=== PATIENT | female | born 1950 | race Caucasian/White ===

== ENCOUNTER 2018-03-02 14:45 | Observation (INO) | payer MEDICARE ==
--- OUTSIDE RECORDS SUMMARY | 2018-03-02 14:59 | XMS REPORT ---
:1950 [facility] [address] [place] [address] [address] [place] [address] Care Team Providers Name Role Phone LIONEL LOPEZ Unavailable Unavailable DAGOBERTO MILLER Unavailable Unavailable JUDAH SOFIA Unavailable Unavailable Problems This patient has no known problems. Allergies, Adverse Reactions, Alerts This patient has no known allergies or adverse reactions. Medications This patient has no known medications. Results Test Description Test Time Test Comments Text Results Atomic Results Result Comments BLOOD CULTURE 2016-11-25 14:37:00 Test Item Value Reference Range Comments CULTURE (BEAKER) (test ojfp=8659) No growth in 5 days BLOOD [id number] 13:58:00 Test Item Value Reference Range Comments CULTURE (BEAKER) (test ceyp=3990) No growth in 5 days POCT-GLUCOSE [id number] 08:47:00 Test Item Value Reference Range Comments POC-GLUCOSE METER (BEAKER) 112 mg/dL 70-110 TESTED AT [facility] [address] [facility] (test qyto=4236) [facility] [address] [id number] 05:04:00 Test Item Value Reference Range Comments CREATININE (BEAKER) (test 0.72 mg/dL 0.57-1.25 uxuz=749) EGFR (BEAKER) (test 81 mL/min/1.73 sq m ESTIMATED GFR IS NOT hjmi=0771) ACCURATE CREATININE CLEARANCE IN PREDICTING GLOMERULAR FILTRATION RATE. ESTIMATED GFR IS NOT APPLICABLE FOR DIALYSIS PATIENTS. SPUTUM CULTURE + GRAM [id number] 04:13:00 Test Item Value Reference Range Comments CULTURE (BEAKER) (test 3+ Normal respiratory kirstie udcj=0207) present GRAM STAIN RESULT (BEAKER) 2+ WBCs (test gmyh=0215) GRAM STAIN RESULT (BEAKER) 10-15 epithelial cells (test yitn=15238) GRAM STAIN RESULT (BEAKER) 1+ gram positive rods (test thti=83249) GRAM STAIN RESULT (BEAKER) 3+ gram positive cocci in pairs (test qcbl=793058) GRAM STAIN RESULT (BEAKER) <1+ gram positive cocci in (test lpum=616880) clusters POCT-GLUCOSE [id number] 21:46:00 Test Item Value Reference Range Comments POC-GLUCOSE METER (BEAKER) 137 mg/dL 70-110 TESTED AT [address] (test yxqg=1227) [place] [address] POCT-GLUCOSE [id number] 18:03:00 Test Item Value Reference Range Comments POC-GLUCOSE METER (BEAKER) 95 mg/dL 70-110 TESTED AT [address] (test zeco=5852) [place] [address] POCT-GLUCOSE [id number] 12:59:00 Test Item Value Reference Range Comments POC-GLUCOSE METER (BEAKER) 110 mg/dL 70-110 TESTED AT [address] (test ysif=4317) [place] [id number] POCT-GLUCOSE [id number] 08:29:00 Test Item Value Reference Range Comments POC-GLUCOSE METER (BEAKER) 90 mg/dL 70-110 TESTED AT [address] (test ijlm=7032) [place] [address] VANCOMYCIN LEVEL, [id number] 23:29:00 Test Item Value Reference Range Comments VANCOMYCIN TROUGH (BEAKER) (test xddf=511) 20.0 ug/mL 10.0-20.0 Draw trough level prior to dose administration.POCT-GLUCOSE [id number] 21: 05:00 Test Item Value Reference Range Comments POC-GLUCOSE METER (BEAKER) 92 mg/dL 70-110 TESTED AT [address] (test exvs=3495) [place] [id number] POCT-GLUCOSE [id number] 17:04:00 Test Item Value Reference Range Comments POC-GLUCOSE METER (BEAKER) 121 mg/dL 70-110 TESTED AT [address] (test tgft=3232) [place] [id number] POCT-GLUCOSE [id number] 12:25:00 Test Item Value Reference Range Comments POC-GLUCOSE METER (BEAKER) 94 mg/dL 70-110 TESTED AT [address] (test giry=9795) [facility] [address] POCT-GLUCOSE [id number] 08:47:00 Test Item Value Reference Range Comments POC-GLUCOSE METER (BEAKER) 98 mg/dL 70-110 TESTED AT [address] (test fblw=9103) [facility] [address] POCT-GLUCOSE [id number] 22:35:00 Test Item Value Reference Range Comments POC-GLUCOSE METER (BEAKER) 124 mg/dL 70-110 TESTED AT [address] (test jzbd=9084) [facility] [address] POCT-GLUCOSE [id number] 17:08:00 Test Item Value Reference Range Comments POC-GLUCOSE METER (BEAKER) 256 mg/dL 70-110 TESTED AT [address] (test rokf=2290) [facility] [address] POCT-GLUCOSE [id number] 12:45:00 Test Item Value Reference Range Comments POC-GLUCOSE METER (BEAKER) 112 mg/dL 70-110 TESTED AT [address] (test irsw=5088) [facility] [address] POCT-GLUCOSE [id number] 07:37:00 Test Item Value Reference Range Comments POC-GLUCOSE METER (BEAKER) 105 mg/dL 70-110 TESTED AT [address] (test hlpb=6947) [facility] [address] CBC W/PLT COUNT & AUTO [id number] 05:55:00 Test Item Value Reference Range Comments WHITE BLOOD CELL COUNT (BEAKER) (test mtbr=303) 5.5 K/ L 4.0-10.0 RED BLOOD CELL COUNT (BEAKER) (test hmjh=532) 4.11 M/ L 4.00-5.00 HEMOGLOBIN (BEAKER) (test rstc=657) 12.6 GM/DL 12.0-15.0 HEMATOCRIT (BEAKER) (test zdyr=370) 38.0 % 36.0-45.0 MEAN CORPUSCULAR VOLUME (BEAKER) (test rzlw=824) 92.3 fL 82.0-99.0 MEAN CORPUSCULAR HEMOGLOBIN (BEAKER) (test 30.6 pg 27.0-33.0 obvb=393) MEAN CORPUSCULAR HEMOGLOBIN CONC (BEAKER) (test 33.1 GM/DL 32.0-36.0 eczj=776) RED CELL DISTRIBUTION WIDTH (BEAKER) (test 13.5 % 10.3-14.2 oakl=914) PLATELET COUNT (BEAKER) (test dilw=451) 190 K/CU MM 150-430 MEAN PLATELET VOLUME (BEAKER) (test kkzh=916) 6.9 fL 6.5-10.5 NUCLEATED RED BLOOD CELLS (BEAKER) (test 0 /100 WBC 0-0 wwpn=767) NEUTROPHILS RELATIVE PERCENT (BEAKER) (test 48 % fjnf=596) LYMPHOCYTES RELATIVE PERCENT (BEAKER) (test 40 % wawq=831) MONOCYTES RELATIVE PERCENT (BEAKER) (test 6 % zgmi=439) EOSINOPHILS RELATIVE PERCENT (BEAKER) (test 6 % hxtf=829) BASOPHILS RELATIVE PERCENT (BEAKER) (test 1 % mybi=975) NEUTROPHILS ABSOLUTE COUNT (BEAKER) (test 2.62 K/ L 1.80-8.00 aakx=002) LYMPHOCYTES ABSOLUTE COUNT (BEAKER) (test 2.18 K/ L 1.48-4.50 urfm=700) MONOCYTES ABSOLUTE COUNT (BEAKER) (test 0.33 K/ L 0.00-1.30 xfxx=713) EOSINOPHILS ABSOLUTE COUNT (BEAKER) (test 0.31 K/ L 0.00-0.50 zuto=880) BASOPHILS ABSOLUTE COUNT (BEAKER) (test 0.03 K/ L 0.00-0.20 nsrm=109) [facility] [id number] 05:31:00 Test Item Value Reference Range Comments SODIUM (BEAKER) (test 140 meq/L 136-145 xrtr=016) POTASSIUM (BEAKER) (test 3.8 meq/L 3.5-5.1 geck=206) CHLORIDE (BEAKER) (test 102 meq/L 98-107 forq=258) CO2 (BEAKER) (test 28 meq/L 22-29 tsoe=488) BLOOD UREA NITROGEN 9 mg/dL 7-21 (BEAKER) (test lbjy=463) CREATININE (BEAKER) (test 0.75 mg/dL 0.57-1.25 tvza=217) GLUCOSE RANDOM (BEAKER) 102 mg/dL 70-105 (test tybm=580) CALCIUM (BEAKER) (test 9.0 mg/dL 8.4-10.2 sazs=627) EGFR (BEAKER) (test 77 mL/min/1.73 sq m ESTIMATED GFR IS NOT rxkm=7373) ACCURATE CREATININE CLEARANCE IN PREDICTING GLOMERULAR FILTRATION RATE. ESTIMATED GFR IS NOT APPLICABLE FOR DIALYSIS PATIENTS. POCT-GLUCOSE [id number] 21:44:00 Test Item Value Reference Range Comments POC-GLUCOSE METER (BEAKER) 112 mg/dL 70-110 TESTED AT [address] (test ygju=8595) [place] [address] POCT-GLUCOSE [id number] 18:23:00 Test Item Value Reference Range Comments POC-GLUCOSE METER (BEAKER) 105 mg/dL 70-110 TESTED AT [address] (test ajli=4652) [place] [address] POCT-GLUCOSE [id number] 11:59:00 Test Item Value Reference Range Comments POC-GLUCOSE METER (BEAKER) 102 mg/dL 70-110 TESTED AT [address] (test asho=9177) [place] [id number] POCT-GLUCOSE [id number] 07:55:00 Test Item Value Reference Range Comments POC-GLUCOSE METER (BEAKER) 90 mg/dL 70-110 TESTED AT [address] (test oxcv=5039) [place] [id number] POCT-GLUCOSE [id number] 21:28:00 Test Item Value Reference Range Comments POC-GLUCOSE METER (BEAKER) 170 mg/dL 70-110 TESTED AT [address] (test nxhw=6848) [place] [address] POCT-GLUCOSE [id number] 16:06:00 Test Item Value Reference Range Comments POC-GLUCOSE METER (BEAKER) 91 mg/dL 70-110 TESTED AT [address] (test mjtv=8178) [place] [address] POCT-GLUCOSE [id number] 09:09:00 Test Item Value Reference Range Comments POC-GLUCOSE METER (BEAKER) 151 mg/dL 70-110 TESTED AT [address] (test mvxr=0479) [place] [id number] CBC W/PLT COUNT & AUTO [id number] 06:15:00 Test Item Value Reference Range Comments WHITE BLOOD CELL COUNT (BEAKER) (test jsaz=144) 6.0 K/ L 4.0-10.0 RED BLOOD CELL COUNT (BEAKER) (test bkou=773) 3.82 M/ L 4.00-5.00 HEMOGLOBIN (BEAKER) (test vuco=766) 11.6 GM/DL 12.0-15.0 HEMATOCRIT (BEAKER) (test vpln=889) 35.3 % 36.0-45.0 MEAN CORPUSCULAR VOLUME (BEAKER) (test cttf=364) 92.5 fL 82.0-99.0 MEAN CORPUSCULAR HEMOGLOBIN (BEAKER) (test 30.5 pg 27.0-33.0 bqpc=398) MEAN CORPUSCULAR HEMOGLOBIN CONC (BEAKER) (test 33.0 GM/DL 32.0-36.0 mpmi=015) RED CELL DISTRIBUTION WIDTH (BEAKER) (test 13.5 % 10.3-14.2 zlqk=092) PLATELET COUNT (BEAKER) (test srgw=206) 149 K/CU MM 150-430 MEAN PLATELET VOLUME (BEAKER) (test dmxp=996) 6.8 fL 6.5-10.5 NUCLEATED RED BLOOD CELLS (BEAKER) (test 0 /100 WBC 0-0 nrcw=588) NEUTROPHILS RELATIVE PERCENT (BEAKER) (test 51 % odlv=938) LYMPHOCYTES RELATIVE PERCENT (BEAKER) (test 39 % ixvg=850) MONOCYTES RELATIVE PERCENT (BEAKER) (test 5 % nbip=415) EOSINOPHILS RELATIVE PERCENT (BEAKER) (test 5 % unbq=270) BASOPHILS RELATIVE PERCENT (BEAKER) (test 1 % fels=326) NEUTROPHILS ABSOLUTE COUNT (BEAKER) (test 3.04 K/ L 1.80-8.00 dlnr=462) LYMPHOCYTES ABSOLUTE COUNT (BEAKER) (test 2.31 K/ L 1.48-4.50 jcza=048) MONOCYTES ABSOLUTE COUNT (BEAKER) (test 0.33 K/ L 0.00-1.30 uata=391) EOSINOPHILS ABSOLUTE COUNT (BEAKER) (test 0.29 K/ L 0.00-0.50 rsoa=218) BASOPHILS ABSOLUTE COUNT (BEAKER) (test 0.04 K/ L 0.00-0.20 exvy=678) 0.00BASI METABOLIC [id number] 06:14:00 Test Item Value Reference Range Comments SODIUM (BEAKER) (test 141 meq/L 136-145 chfl=465) POTASSIUM (BEAKER) (test 3.8 meq/L 3.5-5.1 bqff=903) CHLORIDE (BEAKER) (test 105 meq/L 98-107 xmll=586) CO2 (BEAKER) (test 27 meq/L 22-29 ikol=674) BLOOD UREA NITROGEN 13 mg/dL 7-21 (BEAKER) (test olhh=231) CREATININE (BEAKER) (test 0.69 mg/dL 0.57-1.25 edri=966) GLUCOSE RANDOM (BEAKER) 109 mg/dL 70-105 (test mevv=362) CALCIUM (BEAKER) (test 8.6 mg/dL 8.4-10.2 rfyn=579) EGFR (BEAKER) (test 85 mL/min/1.73 sq m ESTIMATED GFR IS NOT hqmg=1844) ACCURATE CREATININE CLEARANCE IN PREDICTING GLOMERULAR FILTRATION RATE. ESTIMATED GFR IS NOT APPLICABLE FOR DIALYSIS PATIENTS. POCT-GLUCOSE [id number] 21:21:00 Test Item Value Reference Range Comments POC-GLUCOSE METER (BEAKER) 120 mg/dL 70-110 TESTED AT [facility] [address] [facility] (test zvqe=5786) [facility] [address] CBC W/PLT COUNT & AUTO [id number] 08:26:00 Test Item Value Reference Range Comments WHITE BLOOD CELL COUNT (BEAKER) (test ldzr=673) 7.3 K/ L 4.0-10.0 RED BLOOD CELL COUNT (BEAKER) (test arct=910) 4.08 M/ L 4.00-5.00 HEMOGLOBIN (BEAKER) (test wmql=826) 13.1 GM/DL 12.0-15.0 HEMATOCRIT (BEAKER) (test daya=592) 37.5 % 36.0-45.0 MEAN CORPUSCULAR VOLUME (BEAKER) (test puxk=884) 91.8 fL 82.0-99.0 MEAN CORPUSCULAR HEMOGLOBIN (BEAKER) (test 32.0 pg 27.0-33.0 kcgh=308) MEAN CORPUSCULAR HEMOGLOBIN CONC (BEAKER) (test 34.9 GM/DL 32.0-36.0 fthy=434) RED CELL DISTRIBUTION WIDTH (BEAKER) (test 13.5 % 10.3-14.2 wheu=054) PLATELET COUNT (BEAKER) (test lhvs=372) 168 K/CU MM 150-430 MEAN PLATELET VOLUME (BEAKER) (test lwgx=031) 7.0 fL 6.5-10.5 NUCLEATED RED BLOOD CELLS (BEAKER) (test 0 /100 WBC 0-0 lfir=279) NEUTROPHILS RELATIVE PERCENT (BEAKER) (test 91 % ctyb=310) LYMPHOCYTES RELATIVE PERCENT (BEAKER) (test 7 % daxc=696) MONOCYTES RELATIVE PERCENT (BEAKER) (test 2 % gzar=058) EOSINOPHILS RELATIVE PERCENT (BEAKER) (test 0 % htsv=832) BASOPHILS RELATIVE PERCENT (BEAKER) (test 0 % efas=602) NEUTROPHILS ABSOLUTE COUNT (BEAKER) (test 6.67 K/ L 1.80-8.00 peql=291) LYMPHOCYTES ABSOLUTE COUNT (BEAKER) (test 0.48 K/ L 1.48-4.50 fbaj=370) MONOCYTES ABSOLUTE COUNT (BEAKER) (test 0.13 K/ L 0.00-1.30 pkoy=892) EOSINOPHILS ABSOLUTE COUNT (BEAKER) (test 0.02 K/ L 0.00-0.50 owcq=837) BASOPHILS ABSOLUTE COUNT (BEAKER) (test 0.01 K/ L 0.00-0.20 ecvm=819) 0.00BASIC METABOLIC [id number] 07:02:00 Test Item Value Reference Range Comments SODIUM (BEAKER) (test 140 meq/L 136-145 afng=466) POTASSIUM (BEAKER) (test 4.4 meq/L 3.5-5.1 oosj=215) CHLORIDE (BEAKER) (test 103 meq/L 98-107 zgnm=618) CO2 (BEAKER) (test 24 meq/L 22-29 wltb=426) BLOOD UREA NITROGEN 12 mg/dL 7-21 (BEAKER) (test azyz=985) CREATININE (BEAKER) (test 0.79 mg/dL 0.57-1.25 rpqt=690) GLUCOSE RANDOM (BEAKER) 162 mg/dL 70-105 (test iqdw=921) CALCIUM (BEAKER) (test 9.0 mg/dL 8.4-10.2 zmqc=173) EGFR (BEAKER) (test 73 mL/min/1.73 sq m ESTIMATED GFR IS NOT qmtt=9753) ACCURATE CREATININE CLEARANCE IN PREDICTING GLOMERULAR FILTRATION RATE. ESTIMATED GFR IS NOT APPLICABLE FOR DIALYSIS PATIENTS. POCT-GLUCOSE [id number] 18:29:00 Test Item Value Reference Range Comments POC-GLUCOSE METER (BEAKER) 119 mg/dL 70-110 TESTED AT [facility] [address] (test xtjo=5500) [facility] [address] BASIC METABOLIC [id number] 06:46:00 Test Item Value Reference Range Comments SODIUM (BEAKER) (test 142 meq/L 136-145 dnrf=482) POTASSIUM (BEAKER) (test 4.0 meq/L 3.5-5.1 nheb=252) CHLORIDE (BEAKER) (test 106 meq/L 98-107 upoo=523) CO2 (BEAKER) (test 26 meq/L 22-29 wgto=747) BLOOD UREA NITROGEN 12 mg/dL 7-21 (BEAKER) (test hxnr=400) CREATININE (BEAKER) (test 0.75 mg/dL 0.57-1.25 kzln=801) GLUCOSE RANDOM (BEAKER) 105 mg/dL 70-105 (test jbmz=970) CALCIUM (BEAKER) (test 9.2 mg/dL 8.4-10.2 ktqb=450) EGFR (BEAKER) (test 77 mL/min/1.73 sq m ESTIMATED GFR IS NOT tiuo=0282) ACCURATE CREATININE CLEARANCE IN PREDICTING GLOMERULAR FILTRATION RATE. ESTIMATED GFR IS NOT APPLICABLE FOR DIALYSIS PATIENTS. [id number] 06:10:00 Test Item Value Reference Range Comments PROTIME (BEAKER) (test gjir=640) 13.4 seconds 11.7-14.7 INR (BEAKER) (test oyyh=460) 1.0 <=5.9 PARTIAL THROMBOPLASTIN TIME (BEAKER) (test 32.8 seconds 22.5-36.0 vibx=879) RECOMMENDED COUMADIN/WARFARIN INR THERAPY RANGESSTANDARD DOSE: 2.0 - 3.0 Includes: PROPHYLAXIS forvenous thrombosis, systemic embolization; TREATMENT for venous thrombosis and/or pulmonary embolus.HIGH RISK: Target INR is 2.5-3.5 for patients with mechanical heart valves.CBC W/PLT COUNT & AUTO [id number] 05:58:00 Test Item Value Reference Range Comments WHITE BLOOD CELL COUNT (BEAKER) (test lmkg=425) 5.1 K/ L 4.0-10.0 RED BLOOD CELL COUNT (BEAKER) (test bryu=851) 4.04 M/ L 4.00-5.00 HEMOGLOBIN (BEAKER) (test albh=360) 12.4 GM/DL 12.0-15.0 HEMATOCRIT (BEAKER) (test wbqa=202) 37.0 % 36.0-45.0 MEAN CORPUSCULAR VOLUME (BEAKER) (test daer=768) 91.5 fL 82.0-99.0 MEAN CORPUSCULAR HEMOGLOBIN (BEAKER) (test 30.7 pg 27.0-33.0 ccsh=411) MEAN CORPUSCULAR HEMOGLOBIN CONC (BEAKER) (test 33.6 GM/DL 32.0-36.0 ffmg=513) RED CELL DISTRIBUTION WIDTH (BEAKER) (test 14.7 % 10.3-14.2 egaj=008) PLATELET COUNT (BEAKER) (test tnmy=056) 184 K/CU MM 150-430 MEAN PLATELET VOLUME (BEAKER) (test ntvu=585) 6.8 fL 6.5-10.5 NUCLEATED RED BLOOD CELLS (BEAKER) (test 0 /100 WBC 0-0 tofm=616) NEUTROPHILS RELATIVE PERCENT (BEAKER) (test 57 % rrpv=433) LYMPHOCYTES RELATIVE PERCENT (BEAKER) (test 32 % iylj=158) MONOCYTES RELATIVE PERCENT (BEAKER) (test 7 % pgyw=691) EOSINOPHILS RELATIVE PERCENT (BEAKER) (test 3 % hlov=798) BASOPHILS RELATIVE PERCENT (BEAKER) (test 1 % hawk=176) NEUTROPHILS ABSOLUTE COUNT (BEAKER) (test 2.90 K/ L 1.80-8.00 sxyi=075) LYMPHOCYTES ABSOLUTE COUNT (BEAKER) (test 1.64 K/ L 1.48-4.50 fkaj=945) MONOCYTES ABSOLUTE COUNT (BEAKER) (test 0.37 K/ L 0.00-1.30 nqgn=841) EOSINOPHILS ABSOLUTE COUNT (BEAKER) (test 0.15 K/ L 0.00-0.50 sihp=250) BASOPHILS ABSOLUTE COUNT (BEAKER) (test 0.03 K/ L 0.00-0.20 egai=250) 0.00POCT-GLUCOSE [id number] 16:30:00 Test Item Value Reference Range Comments POC-GLUCOSE METER (BEAKER) 122 mg/dL 70-110 TESTED AT [facility] [address] [facility] (test jkuu=3355) [facility] [address] POCT-GLUCOSE [id number] 07:10:00 Test Item Value Reference Range Comments POC-GLUCOSE METER (BEAKER) 85 mg/dL 70-110 TESTED AT [address] (test cmof=6270) [facility] [address] POCT-GLUCOSE [id number] 21:27:00 Test Item Value Reference Range Comments POC-GLUCOSE METER (BEAKER) 130 mg/dL 70-110 TESTED AT [address] (test vhkh=8096) [facility] [address] HEMOGLOBIN [id number] 21:02:00 Test Item Value Reference Range Comments HEMOGLOBIN A1C (BEAKER) (test yvxd=269) 4.9 % 4.3-6.1 [id number] 17:23:00 Test Item Value Reference Range Comments PROTIME (BEAKER) (test qypc=608) 13.8 seconds 11.7-14.7 INR (BEAKER) (test jgfb=782) 1.1 <=5.9 PARTIAL THROMBOPLASTIN TIME (BEAKER) (test 27.6 seconds 22.5-36.0 kmtt=778) RECOMMENDED COUMADIN/WARFARIN INR THERAPY RANGESSTANDARD DOSE: 2.0 - 3.0 Includes: PROPHYLAXIS forvenous thrombosis, systemic embolization; TREATMENT for venous thrombosis and/or pulmonary embolus.HIGH RISK: Target INR is 2.5-3.5 for patients with mechanical heart valves.BASIC METABOLIC [id number] 14:37: 00 Test Item Value Reference Range Comments SODIUM (BEAKER) (test 143 meq/L 136-145 xpmv=138) POTASSIUM (BEAKER) (test 3.7 meq/L 3.5-5.1 vrfm=996) CHLORIDE (BEAKER) (test 107 meq/L 98-107 qnzj=168) CO2 (BEAKER) (test 27 meq/L 22-29 dzky=983) BLOOD UREA NITROGEN 15 mg/dL 7-21 (BEAKER) (test gcdp=396) CREATININE (BEAKER) 0.76 mg/dL 0.57-1.25 (test gcez=193) GLUCOSE RANDOM (BEAKER) 77 mg/dL 70-105 (test vrbq=640) CALCIUM (BEAKER) (test 9.6 mg/dL 8.4-10.2 skmh=359) EGFR (BEAKER) (test 76 mL/min/1.73 sq m INSUFFICIENT CLINICAL DATA bkww=5979) TO CALCULATE ESTIMATED GFR. CBC W/PLT COUNT & AUTO [id number] 14:18:00 Test Item Value Reference Range Comments WHITE BLOOD CELL COUNT (BEAKER) (test nwmu=705) 6.7 K/ L 4.0-10.0 RED BLOOD CELL COUNT (BEAKER) (test vlpp=646) 4.41 M/ L 4.00-5.00 HEMOGLOBIN (BEAKER) (test zmun=394) 13.4 GM/DL 12.0-15.0 HEMATOCRIT (BEAKER) (test gddu=323) 39.7 % 36.0-45.0 MEAN CORPUSCULAR VOLUME (BEAKER) (test hybz=317) 90.1 fL 82.0-99.0 MEAN CORPUSCULAR HEMOGLOBIN (BEAKER) (test 30.4 pg 27.0-33.0 kmob=291) MEAN CORPUSCULAR HEMOGLOBIN CONC (BEAKER) (test 33.8 GM/DL 32.0-36.0 nacv=891) RED CELL DISTRIBUTION WIDTH (BEAKER) (test 14.6 % 10.3-14.2 vqxz=395) PLATELET COUNT (BEAKER) (test gddf=436) 219 K/CU MM 150-430 MEAN PLATELET VOLUME (BEAKER) (test dotz=040) 6.4 fL 6.5-10.5 NUCLEATED RED BLOOD CELLS (BEAKER) (test 0 /100 WBC 0-0 zlrm=783) NEUTROPHILS RELATIVE PERCENT (BEAKER) (test 69 % wzvg=038) LYMPHOCYTES RELATIVE PERCENT (BEAKER) (test 21 % xhua=052) MONOCYTES RELATIVE PERCENT (BEAKER) (test 7 % udtw=837) EOSINOPHILS RELATIVE PERCENT (BEAKER) (test 2 % rhnh=341) BASOPHILS RELATIVE PERCENT (BEAKER) (test 1 % zqhz=054) NEUTROPHILS ABSOLUTE COUNT (BEAKER) (test 4.58 K/ L 1.80-8.00 pzps=335) LYMPHOCYTES ABSOLUTE COUNT (BEAKER) (test 1.43 K/ L 1.48-4.50 uelf=960) MONOCYTES ABSOLUTE COUNT (BEAKER) (test 0.45 K/ L 0.00-1.30 oter=861) EOSINOPHILS ABSOLUTE COUNT (BEAKER) (test 0.15 K/ L 0.00-0.50 elhx=093) BASOPHILS ABSOLUTE COUNT (BEAKER) (test 0.06 K/ L 0.00-0.20 ysus=456) 0.00POCT-GLUCOSE [id number] 11:43:00 Test Item Value Reference Range Comments POC-GLUCOSE METER (BEAKER) 87 mg/dL 70-110 TESTED AT [address] (test pmvo=0827) [facility] [id number] POCT-GLUCOSE [id number] 08:40:00 Test Item Value Reference Range Comments POC-GLUCOSE METER (BEAKER) 82 mg/dL 70-110 TESTED AT [address] (test auon=6879) [place] [id number] VITAMIN D, [id number] 05:43:00 Test Item Value Reference Range Comments VITAMIN D 25-OH (BEAKER) (test xhvp=6607) 31.0 ng/mL 13.0-47.8 BASIC METABOLIC [id number] 05:22:00 Test Item Value Reference Range Comments SODIUM (BEAKER) (test 139 meq/L 136-145 uizb=913) POTASSIUM (BEAKER) (test 4.1 meq/L 3.5-5.1 pzrp=635) CHLORIDE (BEAKER) (test 106 meq/L 98-107 codp=041) CO2 (BEAKER) (test 25 meq/L 22-29 ihzo=299) BLOOD UREA NITROGEN 11 mg/dL 7-21 (BEAKER) (test aoqu=191) CREATININE (BEAKER) (test 0.70 mg/dL 0.57-1.25 djjo=068) GLUCOSE RANDOM (BEAKER) 93 mg/dL 70-105 (test yevb=160) CALCIUM (BEAKER) (test 9.0 mg/dL 8.4-10.2 kwys=623) EGFR (BEAKER) (test 84 mL/min/1.73 sq m ESTIMATED GFR IS NOT ykkj=9801) ACCURATE CREATININE CLEARANCE IN PREDICTING GLOMERULAR FILTRATION RATE. ESTIMATED GFR IS NOT APPLICABLE FOR DIALYSIS PATIENTS. CBC (HEMOGRAM ONLY)2016-10-17 05:22:00 Test Item Value Reference Range Comments WHITE BLOOD CELL COUNT (BEAKER) (test ybol=313) 6.9 K/ L 4.0-10.0 RED BLOOD CELL COUNT (BEAKER) (test qohk=582) 3.63 M/ L 4.00-5.00 HEMOGLOBIN (BEAKER) (test pasd=828) 11.4 GM/DL 12.0-15.0 HEMATOCRIT (BEAKER) (test uinp=405) 33.4 % 36.0-45.0 MEAN CORPUSCULAR VOLUME (BEAKER) (test yhvf=095) 92.1 fL 82.0-99.0 MEAN CORPUSCULAR HEMOGLOBIN (BEAKER) (test 31.5 pg 27.0-33.0 knym=870) MEAN CORPUSCULAR HEMOGLOBIN CONC (BEAKER) (test 34.2 GM/DL 32.0-36.0 naqa=922) RED CELL DISTRIBUTION WIDTH (BEAKER) (test 12.7 % 10.3-14.2 ltpg=330) PLATELET COUNT (BEAKER) (test wuga=831) 222 K/CU MM 150-430 MEAN PLATELET VOLUME (BEAKER) (test obwo=043) 6.4 fL 6.5-10.5 NUCLEATED RED BLOOD CELLS (BEAKER) (test 0 /100 WBC 0-0 ndrr=821) 0.00POCT-GLUCOSE [id number] 21:18:00 Test Item Value Reference Range Comments POC-GLUCOSE METER (BEAKER) 181 mg/dL 70-110 TESTED AT [address] (test txmg=3323) [place] [id number] POCT-GLUCOSE [id number] 11:49:00 Test Item Value Reference Range Comments POC-GLUCOSE METER (BEAKER) 112 mg/dL 70-110 TESTED AT [address] (test wiqj=5924) [place] [id number] BASIC METABOLIC [id number] 07:49:00 Test Item Value Reference Range Comments SODIUM (BEAKER) (test 138 meq/L 136-145 wtpn=899) POTASSIUM (BEAKER) (test 4.1 meq/L 3.5-5.1 fswi=564) CHLORIDE (BEAKER) (test 104 meq/L 98-107 dcsf=039) CO2 (BEAKER) (test 26 meq/L 22-29 ljkk=726) BLOOD UREA NITROGEN 13 mg/dL 7-21 (BEAKER) (test xccd=521) CREATININE (BEAKER) (test 0.74 mg/dL 0.57-1.25 jeaq=205) GLUCOSE RANDOM (BEAKER) 94 mg/dL 70-105 (test insj=150) CALCIUM (BEAKER) (test 9.3 mg/dL 8.4-10.2 ngul=736) EGFR (BEAKER) (test 79 mL/min/1.73 sq m ESTIMATED GFR IS NOT tkjh=3276) ACCURATE CREATININE CLEARANCE IN PREDICTING GLOMERULAR FILTRATION RATE. ESTIMATED GFR IS NOT APPLICABLE FOR DIALYSIS PATIENTS. [id number] 07:47:00 Test Item Value Reference Range Comments PARTIAL THROMBOPLASTIN TIME (BEAKER) (test 32.9 seconds 22.5-36.0 ibfk=872) PROTHROMBIN [id number] 07:46:00 Test Item Value Reference Range Comments PROTIME (BEAKER) (test ctxj=670) 13.4 seconds 11.7-14.7 INR (BEAKER) (test swyn=454) 1.0 <=5.9 RECOMMENDED COUMADIN/WARFARIN INR THERAPY RANGESSTANDARD DOSE: 2.0 - 3.0 Includes: PROPHYLAXIS forvenous thrombosis, systemic embolization; TREATMENT for venous thrombosis and/or pulmonary embolus.HIGH RISK: Target INR is 2.5-3.5 for patients with mechanical heart valves.CBC W/PLT COUNT & AUTO [id number] 07:32:00 Test Item Value Reference Range Comments WHITE BLOOD CELL COUNT (BEAKER) (test ttou=719) 6.1 K/ L 4.0-10.0 RED BLOOD CELL COUNT (BEAKER) (test wrqj=804) 4.22 M/ L 4.00-5.00 HEMOGLOBIN (BEAKER) (test yzyi=435) 12.6 GM/DL 12.0-15.0 HEMATOCRIT (BEAKER) (test qllg=815) 37.8 % 36.0-45.0 MEAN CORPUSCULAR VOLUME (BEAKER) (test xxfn=797) 89.6 fL 82.0-99.0 MEAN CORPUSCULAR HEMOGLOBIN (BEAKER) (test 29.9 pg 27.0-33.0 zkgh=318) MEAN CORPUSCULAR HEMOGLOBIN CONC (BEAKER) (test 33.4 GM/DL 32.0-36.0 lnrt=121) RED CELL DISTRIBUTION WIDTH (BEAKER) (test 13.9 % 10.3-14.2 wvsx=231) PLATELET COUNT (BEAKER) (test utvv=235) 247 K/CU MM 150-430 MEAN PLATELET VOLUME (BEAKER) (test iipe=900) 6.4 fL 6.5-10.5 NUCLEATED RED BLOOD CELLS (BEAKER) (test 0 /100 WBC 0-0 wcmz=450) NEUTROPHILS RELATIVE PERCENT (BEAKER) (test 55 % wobh=635) LYMPHOCYTES RELATIVE PERCENT (BEAKER) (test 33 % mbvx=252) MONOCYTES RELATIVE PERCENT (BEAKER) (test 7 % sqjm=881) EOSINOPHILS RELATIVE PERCENT (BEAKER) (test 5 % xbzx=833) BASOPHILS RELATIVE PERCENT (BEAKER) (test 1 % davh=405) NEUTROPHILS ABSOLUTE COUNT (BEAKER) (test 3.35 K/ L 1.80-8.00 ngzm=166) LYMPHOCYTES ABSOLUTE COUNT (BEAKER) (test 2.03 K/ L 1.48-4.50 rcnq=492) MONOCYTES ABSOLUTE COUNT (BEAKER) (test 0.42 K/ L 0.00-1.30 says=142) EOSINOPHILS ABSOLUTE COUNT (BEAKER) (test 0.29 K/ L 0.00-0.50 sfnx=590) BASOPHILS ABSOLUTE COUNT (BEAKER) (test 0.04 K/ L 0.00-0.20 enbe=937) 0.00TISSUE [id number] 19:41:00 Test Item Value Reference Range Comments LAB AP CPT CODE (BEAKER) (test bizv=8347) [id number] 10:02:00 Test Item Value Reference Range Comments MAGNESIUM (BEAKER) (test bmcv=511) 2.0 mg/dL 1.6-2.6 COMPREHENSIVE METABOLIC [id number] 05:55:00 Test Item Value Reference Range Comments TOTAL PROTEIN (BEAKER) 6.0 gm/dL 6.0-8.3 (test lyzm=614) ALBUMIN (BEAKER) (test 3.2 g/dL 3.5-5.0 ludm=1799) ALKALINE PHOSPHATASE 119 U/L 40-150 (BEAKER) (test zpuu=709) BILIRUBIN TOTAL (BEAKER) 0.7 mg/dL 0.2-1.2 (test jqiq=896) SODIUM (BEAKER) (test 139 meq/L 136-145 fbyt=872) POTASSIUM (BEAKER) (test 4.0 meq/L 3.5-5.1 nmkj=998) CHLORIDE (BEAKER) (test 105 meq/L 98-107 bnpa=346) CO2 (BEAKER) (test 24 meq/L 22-29 fxsb=537) BLOOD UREA NITROGEN 8 mg/dL 7-21 (BEAKER) (test xuet=335) CREATININE (BEAKER) (test 0.63 mg/dL 0.57-1.25 robh=973) GLUCOSE RANDOM (BEAKER) 121 mg/dL 70-105 (test lmft=544) CALCIUM (BEAKER) (test 9.2 mg/dL 8.4-10.2 ohzn=424) AST (SGOT) (BEAKER) (test 11 U/L 5-34 cgil=549) ALT (SGPT) (BEAKER) (test 10 U/L 6-55 exrx=362) EGFR (BEAKER) (test 95 mL/min/1.73 sq m ESTIMATED GFR IS NOT mrjo=3554) ACCURATE CREATININE CLEARANCE IN PREDICTING GLOMERULAR FILTRATION RATE. ESTIMATED GFR IS NOT APPLICABLE FOR DIALYSIS PATIENTS. HEPATIC FUNCTION [id number] 18:10:00 Test Item Value Reference Range Comments TOTAL PROTEIN (BEAKER) (test pleg=000) 6.0 gm/dL 6.0-8.3 ALBUMIN (BEAKER) (test mzkt=5949) 3.2 g/dL 3.5-5.0 BILIRUBIN TOTAL (BEAKER) (test hipf=789) 0.6 mg/dL 0.2-1.2 BILIRUBIN DIRECT (BEAKER) (test sbmz=186) 0.3 mg/dL 0.1-0.5 ALKALINE PHOSPHATASE (BEAKER) (test cake=580) 114 U/L 40-150 AST (SGOT) (BEAKER) (test iojl=040) 11 U/L 5-34 ALT (SGPT) (BEAKER) (test imef=303) 9 U/L 6-55 [id number] 18:10:00 Test Item Value Reference Range Comments MAGNESIUM (BEAKER) (test hpul=576) 1.5 mg/dL 1.6-2.6 [id number] 18:10:00 Test Item Value Reference Range Comments PHOSPHORUS (BEAKER) (test ucwm=811) 4.2 mg/dL 2.3-4.7 BASIC METABOLIC [id number] 13:52:00 Test Item Value Reference Range Comments SODIUM (BEAKER) (test 139 meq/L 136-145 fxuo=132) POTASSIUM (BEAKER) (test 3.3 meq/L 3.5-5.1 gpxc=707) CHLORIDE (BEAKER) (test 103 meq/L 98-107 ajja=798) CO2 (BEAKER) (test 26 meq/L 22-29 gcwg=954) BLOOD UREA NITROGEN 11 mg/dL 7-21 (BEAKER) (test kkoc=267) CREATININE (BEAKER) (test 0.69 mg/dL 0.57-1.25 gdjb=491) GLUCOSE RANDOM (BEAKER) 94 mg/dL 70-105 (test neun=393) CALCIUM (BEAKER) (test 9.0 mg/dL 8.4-10.2 vgof=531) EGFR (BEAKER) (test 85 mL/min/1.73 sq m ESTIMATED GFR IS NOT mbbv=4113) ACCURATE CREATININE CLEARANCE IN PREDICTING GLOMERULAR FILTRATION RATE. ESTIMATED GFR IS NOT APPLICABLE FOR DIALYSIS PATIENTS. CBC W/PLT COUNT & AUTO [id number] 13:40:00 Test Item Value Reference Range Comments WHITE BLOOD CELL COUNT (BEAKER) (test twsw=200) 6.5 K/ L 4.0-10.0 RED BLOOD CELL COUNT (BEAKER) (test bjdu=552) 3.54 M/ L 4.00-5.00 HEMOGLOBIN (BEAKER) (test cnau=944) 11.3 GM/DL 12.0-15.0 HEMATOCRIT (BEAKER) (test izde=687) 32.5 % 36.0-45.0 MEAN CORPUSCULAR VOLUME (BEAKER) (test awwm=183) 91.6 fL 82.0-99.0 MEAN CORPUSCULAR HEMOGLOBIN (BEAKER) (test 31.9 pg 27.0-33.0 cljn=466) MEAN CORPUSCULAR HEMOGLOBIN CONC (BEAKER) (test 34.9 GM/DL 32.0-36.0 jcpd=461) RED CELL DISTRIBUTION WIDTH (BEAKER) (test 12.0 % 10.3-14.2 cvrp=426) PLATELET COUNT (BEAKER) (test abbi=641) 220 K/CU MM 150-430 MEAN PLATELET VOLUME (BEAKER) (test anny=376) 6.4 fL 6.5-10.5 NUCLEATED RED BLOOD CELLS (BEAKER) (test 0 /100 WBC 0-0 wvxm=395) NEUTROPHILS RELATIVE PERCENT (BEAKER) (test 69 % xxud=191) LYMPHOCYTES RELATIVE PERCENT (BEAKER) (test 19 % rcrq=553) MONOCYTES RELATIVE PERCENT (BEAKER) (test 7 % zbkh=320) EOSINOPHILS RELATIVE PERCENT (BEAKER) (test 3 % vskq=183) BASOPHILS RELATIVE PERCENT (BEAKER) (test 1 % tkhr=459) NEUTROPHILS ABSOLUTE COUNT (BEAKER) (test 4.51 K/ L 1.80-8.00 kmgf=084) LYMPHOCYTES ABSOLUTE COUNT (BEAKER) (test 1.26 K/ L 1.48-4.50 fgcc=753) MONOCYTES ABSOLUTE COUNT (BEAKER) (test 0.46 K/ L 0.00-1.30 mjmw=569) EOSINOPHILS ABSOLUTE COUNT (BEAKER) (test 0.23 K/ L 0.00-0.50 feik=604) BASOPHILS ABSOLUTE COUNT (BEAKER) (test 0.04 K/ L 0.00-0.20 cbsb=607) 0.00
--- NOTE | 2018-03-02 15:25 | EKG ---
Test Date: 2018-03-02 Test Time: 14:56:37 Manager [facility]: WON MEASUREMENT RESULTS: Intervals: Rate: 58 DE: 126 QRSD: 90 QT: 426 QTc: 418 [place]: P: 54 DE: 126 QRS: 25 T: 37 INTERPRETIVE STATEMENTS: Sinus bradycardia Otherwise normal ECG Compared to ECG 05/01/2012 06:17:30 Sinus rhythm no longer present Myocardial infarct finding no longer present Electronically Signed On 03-02-18 15:24:51 CDT by Tyshawn Melvin
[2018-03-02] MEDS ORDERED: FENTANYL CITR 100 MCG/2 ML ONE ×2 (15:27→17:51)
[2018-03-02] MEDS ORDERED: NA CHLORIDE 0.9% 1,000 ML ONE (15:28)
[2018-03-02] MEDS ORDERED: ONDANSETRON 4 MG/2 ML VIAL ONE ×2 (15:28→17:51)
[2018-03-02 15:34] LABS: Absolute Lymphocytes (CBC) 0.7 K/uL (0.7-4.9); Absolute Monocytes 0.4 K/uL (0.1-1.3); Absolute Neutrophil 5.6 K/uL (1.8-8.0); Basophils % 0.3 % (0-1.3); Eosinophils % 0.6 % (0-4.4); Hematocrit 38.1 % (36.0-45.0); Lymphocytes % 10.6 % (15.3-44.8); MCH 31.8 pg (27.0-35.0); MCV 93.4 fL (80-100); Monocytes % 5.7 % (3.3-12.3); RBC Red Blood Cell Count 4.08 M/uL (3.86-4.86)
[2018-03-02 15:42] LABS: Protime INR 0.97
[2018-03-02 15:56] LABS: ALT/SGPT 18 U/L (12-78); AST/SGOT 17 U/L (15-37); Albumin 3.1 g/dL (3.4-5.0); Alkaline Phosphatase 76 U/L (45-117); BUN Blood Urea Nitrogen 15 mg/dL (7-18); Bicarbonate 27 mmol/L (21-32); Bilirubin Direct 0.1 mg/dL (0-0.2); Bilirubin Total 0.5 mg/dL (0.2-1.0); CKMB Creatine Kinase MB < 1.0 ng/mL (0.3-3.6); Creatine Phosphokinase 38 U/L (26-192); Glucose Level 113 mg/dL (74-106); Magnesium 2.1 mg/dL (1.8-2.4); NT PRO-BNP 772 pg/mL (<125); Protein, Total 6.2 g/dL (6.4-8.2); Sodium Level 145 mmol/L (136-145)
--- NOTE | 2018-03-02 16:44 | RAD REPORT ---
EXAM DESCRIPTION: CT - Head C Spine Cap W Con - 03/02/2018 4:30 pm CLINICAL HISTORY: Trauma, head and neck injury. Chest, abdomen and pelvis pain. PAIN COMPARISON: Abdomen Pelvis W Contrast dated 08/25/2016; Stone Protocol dated 08/13/2016; Ct Stroke Br ain Wo Cont dated 12/28/2015; CT ABD PELVIS W CONTRAST dated 11/30/2014bdomen Pelvis W Contrast date d 08/25/2016; Stone Protocol dated 08/13/2016; Ct Stroke Brain Wo Cont dated 12/28/2015; CT ABD PELVIS W CONTRAST dated 11/30/2014; CT ABD PELVIS W CONTRAST dated 04/28/2012 TECHNIQUE: CT head without contrast. CT cervical spine without contrast with coronal and sagittal reformatted images. CT chest, abdomen and pelvis with IV contrast (approximately 100 mL nonionic IV contrast) with magdaleno l and sagittal reformatted images of the spine. All CT scans are performed using dose optimization technique as appropriate and may include automated exposure control or mA/KV adjustment according to patient size. FINDINGS: CT HEAD WITHOUT CONTRAST: No intracranial hemorrhage, hydrocephalus or extra-axial fluid collection. No areas of brain edema o r midline shift. The paranasal sinuses and mastoids are clear. The calvarium is intact. CT CERVICAL SPINE WITHOUT CONTRAST: No fracture or subluxation. The prevertebral soft tissues are normal in thickness. CT CHEST, ABDOMEN, PELVIS WITH CONTRAST: The lungs are clear.No pneumothorax or pericardial/pleural fluid. No evidence of intra-abdominal visceral injury, free fluid or free air. Cholecystectomy clips are see n. Postsurgical changes are present about the stomach. No concerning pelvic findings. Multilevel spinal compression fractures are seen with vertebroplasty cement in place. A definitive ac [place] fracture is not identified. If the patient has persistent significant back pain, MR imaging of th e spine may be considered. IMPRESSION: Negative for acute traumatic findings.
--- NOTE | 2018-03-02 17:50 | RAD REPORT ---
EXAM DESCRIPTION: [place] Single View03/02/2018 3:37 pm CLINICAL HISTORY: cough COMPARISON: August 2017 FINDINGS: The lungs appear clear of acute infiltrate. The heart is normal size IMPRESSION: No acute abnormalities displayed
[2018-03-02] MEDS ORDERED: CEFTRIAXONE/SWI 1gm 1 GM/10 ML SYR ONE (17:52)
[2018-03-02 18:10] LABS: Urine Blood TRACE (NEG); Urine Glucose NEGATIVE (NEG); Urine Protein NEGATIVE (NEG); Urine pH 5.5 (5.0-7.0)
--- NOTE | 2018-03-02 18:25 | ER ---
Nurse's Notes [facility] Name: Barbara Mcknight Age: 67 yrs Sex: Female : 1950 Arrival Date: 03/02/2018 Time: 14:50 Bed 18 Private MD: Diagnosis: Other chest pain;Syncope and collapse;Cystitis Presentation: 03/02 14:50 Presenting complaint: EMS states: pt fell at home, unwitnessed, states, she couldn't hj remember is she passed out, awaken on the floor, now complaining of neck, L shoulder, L arm pain, chest pain that is described as heavy feeling, on C collar on arrival and 20 g L hand, Fentanyl 70 mcg x2 last dose was 1408; Zofran 4 mg x 1 at 1436; BP- 170/92; 98% on RA; pain is 7/10 after 2 doses of fentanyl;. Transition of care: patient was not received from another setting of care. Onset of symptoms was March 02, 2018. Risk Assessment: Do you want to hurt yourself or someone else? Patient reports no desire to harm self or others. Initial Sepsis Screen: Does the patient meet any 2 criteria? No. Patient's initial sepsis screen is negative. Does the patient have a suspected source of infection? No. Patient's initial sepsis screen is negative. Care prior to arrival: None. 14:50 Method Of Arrival: EMS: [facility] 14:50 Acuity: [place]ADE 3 15:02 Mechanism of Injury: Fall. Trauma event details: Injury occurred in the county [facility], Injury occurred: at home. Injury occurred: March 02, 2018. Triage Assessment: 15:01 General: Appears in no apparent distress. uncomfortable, Behavior is calm, cooperative, hj appropriate for age. Pain: Complains of pain in neck, R shoulder, R arm, chest. EENT: No signs and/or symptoms were reported regarding the EENT system. Neuro: Level of Consciousness is awake, alert, obeys commands, Oriented to person, place, time, situation, Appropriate for age. Cardiovascular: Reports chest pain, Capillary refill < 3 seconds Patient's skin is warm and dry. Respiratory: Reports shortness of breath. GI: No signs and/or symptoms were reported involving the gastrointestinal system. : No signs and/or symptoms were reported regarding the genitourinary system. Derm: Musculoskeletal: No signs and/or symptoms reported regarding the musculoskeletal system. Trauma Activation: Not Applicable Physician: ED Physician; Name: ; Notified At: ; Arrived At: Physician: General Surgeon; Name: ; Notified At: ; Arrived At: Physician: Radiology; Name: ; Notified At: ; Arrived At: Physician: Respiratory; Name: ; Notified At: ; Arrived At: Physician: Lab; Name: ; Notified At: ; Arrived At: Historical: - Allergies: 14:58 No Known Allergies; hj - Home Meds: 14:58 oscal 500 mg , 200 iu Vit D3 [Active]; pantoprazole 40 mg oral TbEC 1 tab once daily hj [Active]; cyclobenzaprine 5 mg Oral tab 1 tab twice a day [Active]; Stool Softener 100 mg oral tab 1 tab 2 times per day [Active]; dicyclomine 10 mg Oral cap 1 cap 4 times per day [Active]; hydrocodone-acetaminophen 5-325 mg Oral tab 1 tab every 6 hours [Active]; ropinirole 4 mg oral tab 1 tab nightly [Active]; Zofran (as hydrochloride) 4 mg Oral tab 2 tabs every 8 hours [Active]; glycolic acid (bulk) miscellaneous kina [Active]; tramadol 50 mg Oral tab 1 tab every 6 hours [Active]; - PMHx: 14:58 chronic kidney disease; Hypertension; Migraines; Osteoporosis; restless leg syndrome; hj - PSHx: 14:58 Unable to obtain; hj - Immunization history:: Adult Immunizations up to date. - Social history:: Smoking status: Patient/guardian denies using tobacco, Patient/guardian denies using alcohol. - Immunization history: Last tetanus immunization: unknown. - Ebola Screening: : Patient negative for fever greater than or equal to 101.5 degrees Fahrenheit, and additional compatible Ebola Virus Disease symptoms Patient denies exposure to infectious person Patient denies travel to an Ebola-affected area in the 21 days before illness onset. Screenin:58 Abuse screen: Denies threats or abuse. Denies injuries from another. Nutritional hj screening: No deficits noted. Tuberculosis screening: No symptoms or risk factors identified. Fall Risk Fall in past 12 months (25 points). Secondary diagnosis (15 points). Primary Survey: 14:50 A: Airway: patent, Oxygen via nasal cannula at 2 liters per minute. Oral cavity: clear, hj gag reflex present, Trachea midline. Breathing/Chest: Respiratory pattern: regular, Respiratory effort: spontaneous, unlabored, Breath sounds: clear, Chest inspection: symmetrical rise and fall of the chest. Circulation: Cardiac rhythm: sinus rhythm Heart tones present. Pulses: palpable right radial artery and left radial artery. Skin color: pink, Skin temperature: warm, dry. Disability Alert. 15:00 Reassessment Airway Airway Patent Oxygen Nasal cannula Oral cavity Clear +Gag reflex hj Trachea Midline Breathing/Chest Respiratory pattern Regular Respiratory effort Spontaneous Unlabored Breath sounds Clear Chest inspection Symmetrical Circulation Heart rhythm Sinus rhythm Heart tones Present Pulses Palpable Color [place] Temperature Warm Dry Disability Alert. Secondary Survey: 15:05 HEENT: No deficits noted. Gastrointestinal: No deficits noted. : No signs and/or hj symptoms were reported regarding the genitourinary system. Musculoskeletal: Reports pain in neck, L shoulder, L arm, chest. Assessment: 14:58 Reassessment: see triage for assesment;. hj 15:51 Reassessment: Patient and/or family updated on plan of care and expected duration. Pain hj level reassessed. Patient is alert, oriented x 3, equal unlabored respirations, skin warm/dry/pink. awaiting for CT;. 15:56 Reassessment: IV inserted R AC for contrast;. hj 16:55 Reassessment: awaiting results and POC;. hj 17:30 Reassessment: Patient and/or family updated on plan of care and expected duration. Pain hj level reassessed. Patient is alert, oriented x 3, equal unlabored respirations, skin warm/dry/pink. C collar removed;. 18:02 Reassessment: Patient and/or family updated on plan of care and expected duration. Pain hj level reassessed. Patient is alert, oriented x 3, equal unlabored respirations, skin warm/dry/pink. medicated and awaiting POC;. 18:58 Reassessment: Patient and/or family updated on plan of care and expected duration. Pain jd3 level reassessed. Patient is alert, oriented x 3, equal unlabored respirations, skin warm/dry/pink. awaiting room placement;. 19:10 Reassessment: Patient appears in no apparent distress at this time. Patient and/or jd3 family updated on plan of care and expected duration. Pain level reassessed. Patient is alert, oriented x 3, equal unlabored respirations, skin warm/dry/pink. 19:56 Reassessment: Patient appears in no apparent distress at this time. Patient and/or jd3 family updated on plan of care and expected duration. Pain level reassessed. Patient is alert, oriented x 3, equal unlabored respirations, skin warm/dry/pink. pt reported understanding of need for admission. Vital Signs: 14:58 BP 175 / 100; Pulse 65; Resp 18; Temp 98.1(O); Pulse Ox 95% on 2 lpm NC; Weight 83.91 hj kg; Height 5 ft. 6 in. (167.64 cm); Pain 7/10; 15:56 BP 162 / 70; Pulse 61; Resp 18; Pulse Ox 96% on R/A; hj 16:45 BP 160 / 72; Pulse 69; Resp 18; Pulse Ox 100% on R/A; hj 17:44 BP 158 / 69; Pulse 65; Resp 18; Pulse Ox 100% on R/A; hj 18:03 BP 145 / 78; Pulse 63; Resp 18; Pulse Ox 100% on R/A; hj 19:17 BP 151 / 64; Pulse 62; Resp 14 S; Pulse Ox 97% on R/A; jd3 14:58 Body Mass Index 29.86 (83.91 kg, 167.64 cm) Anup Coma Score: 14:58 Eye Response: spontaneous(4). Verbal Response: oriented(5). Motor Response: obeys commands(6). Total: 15. Trauma Score (Adult): 14:58 Eye Response: spontaneous(1); Verbal Response: oriented(1); Motor Response: obeys commands(2); Systolic BP: > 89 mm Hg(4); Respiratory Rate: 10 to 29 per min(4); Roby Score: 15; Trauma Score: 12 ED Course: 14:50 Patient arrived in ED. hj 14:54 Triage completed. 15:00 Geovani Barnett MD is Attending Physician. [facility] 15:00 Arm band placed on right wrist. hj 15:03 Patient has correct armband on for positive identification. Bed in low position. Call light in reach. Side rails up X2. 15:03 Oxygen administration via nasal cannula \T\ 2L/min. hj 15:03 Thermoregulation: warm blanket given to patient. hj 15:11 Initial lab(s) drawn, by me, held in ED. Maintain EMS IV. Dressing intact. mh5 15:12 Patient has correct armband on for positive identification. Bed in low position. Call 5 light in reach. Side rails up X2. color television console monitor on. Pulse ox on. NIBP on. 15:20 Rick Ruiz RN is Primary Nurse. hj 15:20 EKG done, by [employer] quality control technician. reviewed by Geovani Barnett MD. sm3 15:[address] via stretcher. cw1 15:34 X-ray completed. Portable x-ray completed in exam room. Patient tolerated procedure bb2 well. 15:35 XRAY Chest (1 view) In Process Unspecified. EDMS 15:40 Radiology exam delayed due to IV insertion attempt and/or patient not having vm2 appropriate IV at this time. 15:50 Inserted saline lock: 22 gauge in right antecubital area, using aseptic technique. hj 15:55 Radiology exam delayed due to lab results not completed at this time. (BUN/Creatinine). vm2 16:[address] vm2 16:30 CT completed. Patient tolerated procedure well. Patient moved back from CT. vm2 16:30 CT Traumagram (Head C Spine CAP W Con) In Process Unspecified. EDMS 18:23 Simon Arvizu MD is Hospitalizing Provider. [facility] 19:10 No provider procedures requiring assistance completed. Patient admitted, IV remains in jd3 place. Administered Medications: 15:20 Drug: NS 0.9% 1000 ml Route: IV; Rate: 125 ml/hr; Site: left hand; hj 17:46 Follow up: IV Status: Infusion continued hj 15:20 Drug: fentaNYL (PF) 25 mcg Route: IVP; Site: left hand; hj 18:14 Follow up: Response: No adverse reaction; Pain is decreased hj 15:20 Drug: Zofran 4 mg Route: IVP; Site: left hand; hj 17:45 Follow up: Response: No adverse reaction; Nausea is decreased hj 17:45 Follow up: Response: No adverse reaction; Pain is decreased hj 17:50 Drug: Rocephin - (cefTRIAXone) 1 grams Route: IVPB; Infused Over: 30 mins; Site: right hj antecubital; 19:00 Follow up: Response: No adverse reaction; IV Status: Completed infusion jd3 17:50 Drug: fentaNYL (PF) 50 mcg Route: IVP; Site: right antecubital; hj 18:14 Follow up: Response: No adverse reaction; Pain is decreased hj 17:50 Drug: Zofran 4 mg Route: IVP; Site: right antecubital; hj 18:14 Follow up: Response: No adverse reaction; Nausea is decreased hj 18:34 Drug: Aspirin Chewable Tablet 162 mg Route: PO; hj 18:47 Follow up: Response: No adverse reaction hj 18:34 Drug: Lovenox 1 mg/kg Route: Sub-Q; Site: right lower abdomen; hj 18:47 Follow up: Response: No adverse reaction Intake: 19:46 PO: 0ml; Total: 0ml. jd3 Output: 19:46 Urine: 0ml; Total: 0ml. jd3 Outcome: 18:24 Decision to Hospitalize by Provider. [facility] 19:09 Patient's length of stay in the Emergency Department was greater than 2 hours. waiting j for room assignment.Patient's length of stay extended due to 19:46 Admitted to Tele accompanied by tech, via stretcher, room 423, with chart, Report jd3 called to Rosa [place]ILLS 19:46 Condition: stable 19:46 Instructed on the need for admit, Demonstrated understanding of instructions. 19:58 Patient left the ED. jd3 Signatures: Dispatcher [employer] EDGeovani Purdy MD MD cha Woodley, Crystal cw1 Rick Ruiz RN RN hj Martinez, Maria 5 Liliana Wong 2 David Alvarez RN RN jd3 Bock, Brittany 2 Celena Carson 3 Corrections: (The following items were deleted from the chart) 19:11 18:58 Reassessment: Patient and/or family updated on plan of care and expected jd3 duration. Pain level reassessed. Patient is alert, oriented x 3, equal unlabored respirations, skin warm/dry/pink. Patient is alert/active/playful, equal unlabored respirations, skin warm/dry/pink. awaiting room placement;
--- NOTE | 2018-03-02 18:25 | EDPHYS ---
Physician Documentation [facility] Name: Barbara Mcknight Age: 67 yrs Sex: Female : 1950 Arrival Date: 03/02/2018 Time: 14:50 Bed 18 Private MD: ED Physician Geovani Barnett HPI: 03/02 15:18 This 67 yrs old Female presents to ER via EMS with complaints of Fall Injury, julio cesar Chest Pain. 15:18 Details of fall: The patient fell from an upright position, while standing, while julio cesar walking. Onset: The symptoms/episode began/occurred just prior to arrival. Associated injuries: The patient sustained injury to the head, neck injury, upper back injury. Severity of symptoms: At their worst the symptoms were mild, moderate, in the emergency department the symptoms are unchanged. The patient has not experienced similar symptoms in the past. Historical: - Allergies: 14:58 No Known Allergies; hj - Home Meds: 14:58 oscal 500 mg , 200 iu Vit D3 [Active]; pantoprazole 40 mg oral TbEC 1 tab once daily hj [Active]; cyclobenzaprine 5 mg Oral tab 1 tab twice a day [Active]; Stool Softener 100 mg oral tab 1 tab 2 times per day [Active]; dicyclomine 10 mg Oral cap 1 cap 4 times per day [Active]; hydrocodone-acetaminophen 5-325 mg Oral tab 1 tab every 6 hours [Active]; ropinirole 4 mg oral tab 1 tab nightly [Active]; Zofran (as hydrochloride) 4 mg Oral tab 2 tabs every 8 hours [Active]; glycolic acid (bulk) miscellaneous kina [Active]; tramadol 50 mg Oral tab 1 tab every 6 hours [Active]; - PMHx: 14:58 chronic kidney disease; Hypertension; Migraines; Osteoporosis; restless leg syndrome; hj - PSHx: 14:58 Unable to obtain; hj - Immunization history:: Adult Immunizations up to date. - Social history:: Smoking status: Patient/guardian denies using tobacco, Patient/guardian denies using alcohol. - Immunization history: Last tetanus immunization: unknown. - Ebola Screening: : Patient negative for fever greater than or equal to 101.5 degrees Fahrenheit, and additional compatible Ebola Virus Disease symptoms Patient denies exposure to infectious person Patient denies travel to an Ebola-affected area in the 21 days before illness onset. ROS: 15:19 Constitutional: Negative for fever, chills, and weight loss, Eyes: Negative for injury, julio cesar pain, redness, and discharge, ENT: Negative for injury, pain, and discharge, Neck: Negative for injury, pain, and swelling, Respiratory: Negative for shortness of breath, cough, wheezing, and pleuritic chest pain, Abdomen/GI: Negative for abdominal pain, nausea, vomiting, diarrhea, and constipation, : Negative for injury, bleeding, discharge, and swelling, MS/Extremity: Negative for injury and deformity, Skin: Negative for injury, rash, and discoloration, Neuro: Negative for headache, weakness, numbness, tingling, and seizure, Psych: Negative for depression, anxiety, suicide ideation, homicidal ideation, and hallucinations, Allergy/Immunology: Negative for hives, rash, and allergies, Endocrine: Negative for neck swelling, polydipsia, polyuria, polyphagia, and marked weight changes, Hematologic/Lymphatic: Negative for swollen nodes, abnormal bleeding, and unusual bruising. 15:19 Cardiovascular: Positive for chest pain. 15:19 Back: Positive for decreased range of motion, pain with movement, of the left scapular area, right scapular area and thoracic area. Exam: 15:19 Constitutional: This is a well developed, well nourished patient who is awake, alert, julio cesar and in no acute distress. Head/Face: Normocephalic, atraumatic. Eyes: Pupils equal round and reactive to light, extra-ocular motions intact. Lids and lashes normal. Conjunctiva and sclera are non-icteric and not injected. Cornea within normal limits. Periorbital areas with no swelling, redness, or edema. ENT: Nares patent. No nasal discharge, no septal abnormalities noted. Tympanic membranes are normal and external auditory canals are clear. Oropharynx with no redness, swelling, or masses, exudates, or evidence of obstruction, uvula midline. Mucous membranes moist. Neck: Trachea midline, no thyromegaly or masses palpated, and no cervical lymphadenopathy. Supple, full range of motion without nuchal rigidity, or vertebral point tenderness. No Meningismus. Chest/axilla: Normal chest wall appearance and motion. Nontender with no deformity. No lesions are appreciated. Cardiovascular: Regular rate and rhythm with a normal S1 and S2. No gallops, murmurs, or rubs. Normal PMI, no JVD. No pulse deficits. Respiratory: Lungs have equal breath sounds bilaterally, clear to auscultation and percussion. No rales, rhonchi or wheezes noted. No increased work of breathing, no retractions or nasal flaring. Abdomen/GI: Soft, non-tender, with normal bowel sounds. No distension or tympany. No guarding or rebound. No evidence of tenderness throughout. Female : Normal external genitalia. Skin: Warm, dry with normal turgor. Normal color with no rashes, no lesions, and no evidence of cellulitis. MS/ Extremity: Pulses equal, no cyanosis. Neurovascular intact. Full, normal range of motion. Neuro: Awake and alert, GCS 15, oriented to person, place, time, and situation. Cranial nerves II-XII grossly intact. Motor strength 5/5 in all extremities. Sensory grossly intact. Cerebellar exam normal. Normal gait. Psych: Awake, alert, with orientation to person, place and time. Behavior, mood, and affect are within normal limits. 15:19 Back: pain, that is mild, ROM is painful, normal spinal alignment noted, CVA tenderness, is absent, vertebral tenderness, is appreciated at T1, T4, T6 and thoracic spine. Vital Signs: 14:58 BP 175 / 100; Pulse 65; Resp 18; Temp 98.1(O); Pulse Ox 95% on 2 lpm NC; Weight 83.91 hj kg; Height 5 ft. 6 in. (167.64 cm); Pain 7/10; 15:56 BP 162 / 70; Pulse 61; Resp 18; Pulse Ox 96% on R/A; hj 16:45 BP 160 / 72; Pulse 69; Resp 18; Pulse Ox 100% on R/A; hj 17:44 BP 158 / 69; Pulse 65; Resp 18; Pulse Ox 100% on R/A; hj 18:03 BP 145 / 78; Pulse 63; Resp 18; Pulse Ox 100% on R/A; hj 19:17 BP 151 / 64; Pulse 62; Resp 14 S; Pulse Ox 97% on R/A; jd3 14:58 Body Mass Index 29.86 (83.91 kg, 167.64 cm) Anup Coma Score: 14:58 Eye Response: spontaneous(4). Verbal Response: oriented(5). Motor Response: obeys hj commands(6). Total: 15. Trauma Score (Adult): 14:58 Eye Response: spontaneous(1); Verbal Response: oriented(1); Motor Response: obeys hj commands(2); Systolic BP: > 89 mm Hg(4); Respiratory Rate: 10 to 29 per min(4); [place] Score: 15; Trauma Score: 12 MDM: 15:00 Patient medically screened. [facility] 15:19 Data reviewed: vital signs, nurses notes, lab test result(s), EKG, radiologic studies, [facility] CT scan, plain films. 03/02 15:18 Order name: Basic Metabolic Panel; Complete Time: 17:44 [facility] 03/02 15:18 Order name: CBC with Diff; Complete Time: 17:44 [facility] 03/02 15:18 Order name: Ckmb; Complete Time: 17:44 [facility] 03/02 15:18 Order name: CPK; Complete Time: 17:44 [facility] 03/02 15:18 Order name: LFT's; Complete Time: 17:44 [facility] 03/02 15:18 Order name: Magnesium; Complete Time: 17:44 [facility] 03/02 15:18 Order name: NT PRO-BNP; Complete Time: 17:44 [facility] 03/02 15:18 Order name: PT-INR; Complete Time: 17:44 [facility] 03/02 15:18 Order name: Ptt, Activated; Complete Time: 17:44 [facility] 03/02 15:18 Order name: Troponin (emerg Dept Use Only); Complete Time: 17:44 [facility] 03/02 17:45 Order name: Urine Culture [facility] 03/02 17:48 Order name: Urine Dipstick--Ancillary (enter results); Complete Time: 18:21 ag 03/02 18:34 Order name: Troponin I [facility] 03/02 18:34 Order name: Troponin I [facility] 03/02 15:18 Order name: XRAY Chest (1 view); Complete Time: 18:21 [facility] 03/02 15:18 Order name: EKG; Complete Time: 15:19 [facility] 03/02 15:18 Order name: CT Traumagram (Head C Spine CAP W Con); Complete Time: 17:44 [facility] 03/02 18:34 Order name: CONS Physician Consult [facility] 03/02 18:34 Order name: CONS Physician Consult [facility] 03/02 18:34 Order name: Regular [facility] 03/02 18:34 Order name: Echo with Doppler [facility] 03/02 18:34 Order name: EKG Electrocardiogram [facility] 03/02 15:18 Order name: Cardiac monitoring; Complete Time: 15:20 [facility] 03/02 15:18 Order name: EKG - Nurse/Tech; Complete Time: 15:20 [facility] 03/02 15:18 Order name: IV Saline Lock; Complete Time: 15:20 [facility] 03/02 15:18 Order name: Labs collected and sent; Complete Time: 15:20 [facility] 03/02 15:18 Order name: O2 Per Protocol; Complete Time: 15:20 [facility] 03/02 15:18 Order name: O2 Sat Monitoring; Complete Time: 15:20 [facility] 03/02 15:18 Order name: Urine Dipstick-Ancillary (obtain specimen); Complete Time: 17:46 [facility] 03/02 18:34 Order name: EKG Electrocardiogram [facility] 03/02 18:34 Order name: EKG Electrocardiogram [facility] 03/02 18:34 Order name: EKG Electrocardiogram [facility] 03/02 18:52 Order name: Diet Heart Healthy; Complete Time: 18:52 hj Administered Medications: 15:20 Drug: NS 0.9% 1000 ml Route: IV; Rate: 125 ml/hr; Site: left hand; hj 17:46 Follow up: IV Status: Infusion continued hj 15:20 Drug: fentaNYL (PF) 25 mcg Route: IVP; Site: left hand; hj 18:14 Follow up: Response: No adverse reaction; Pain is decreased hj 15:20 Drug: Zofran 4 mg Route: IVP; Site: left hand; hj 17:45 Follow up: Response: No adverse reaction; Nausea is decreased hj 17:45 Follow up: Response: No adverse reaction; Pain is decreased hj 17:50 Drug: Rocephin - (cefTRIAXone) 1 grams Route: IVPB; Infused Over: 30 mins; Site: right hj antecubital; 19:00 Follow up: Response: No adverse reaction; IV Status: Completed infusion jd3 17:50 Drug: fentaNYL (PF) 50 mcg Route: IVP; Site: right antecubital; hj 18:14 Follow up: Response: No adverse reaction; Pain is decreased hj 17:50 Drug: Zofran 4 mg Route: IVP; Site: right antecubital; hj 18:14 Follow up: Response: No adverse reaction; Nausea is decreased hj 18:34 Drug: Aspirin Chewable Tablet 162 mg Route: PO; hj 18:47 Follow up: Response: No adverse reaction hj 18:34 Drug: Lovenox 1 mg/kg Route: Sub-Q; Site: right lower abdomen; hj 18:47 Follow up: Response: No adverse reaction Disposition: 03/02/18 18:24 Hospitalization ordered by Simon Arvizu for Observation. Preliminary diagnosis are Other chest pain, Syncope and collapse, Cystitis. - Bed requested for Telemetry/MedSurg (observation). - Status is Observation. jd3 - Condition is Fair. - Problem is new. - Symptoms have improved. UTI on Admission? Yes Signatures: Dispatcher [employer] EDKatelyn Rao RN RN dw Anderson, Corey, MD MD cha Joaquin, Henry RN David Zimmerman RN RN jd3 Corrections: (The following items were deleted from the chart) 19:05 18:24 Hospitalization Ordered by Simon Arvizu MD for Observation. Preliminary dw diagnosis is Other chest pain; Syncope and collapse; Cystitis. Bed requested for Telemetry/MedSurg (observation). Status is Observation. Condition is Fair. Problem is new. Symptoms have improved. UTI on Admission? Yes. [facility] 19:58 19:05 03/02/2018 18:24 Hospitalization Ordered by Simon Arvizu MD for Observation. jd3 Preliminary diagnosis is Other chest pain; Syncope and collapse; Cystitis. Bed requested for Telemetry/MedSurg (observation). Status is Observation. Condition is Fair. Problem is new. Symptoms have improved. UTI on Admission? Yes. dw
[2018-03-02] MEDS ORDERED: ACETAMINOPHEN 500 MG TAB PO PRN (18:29)
[2018-03-02] MEDS ORDERED: ENOXAPARIN 80 MG/0.8 ML SQ ONE (18:45)
[2018-03-02] MEDS ORDERED: ASPIRIN 81 MG CHEWABLE TABLET ONE (18:45)
[2018-03-02] MEDS: ENOXAPARIN 80 MG/0.8 ML SQ SCH (21:00)
[2018-03-02] MEDS: MORPHINE 4 MG/ML SYR IV PRN (22:26)
[2018-03-02] MEDS: ONDANSETRON 4 MG/2 ML VIAL IV PRN (22:26)
[2018-03-03 00:41] VITALS: BMI 30.9
[2018-03-03] MEDS: ONDANSETRON 4 MG/2 ML VIAL IV PRN ×4 (04:28→23:00)
[2018-03-03] MEDS: MORPHINE 4 MG/ML SYR IV PRN ×4 (04:29→23:00)
[2018-03-03 05:52] LABS: Absolute Lymphocytes (CBC) 1.6 K/uL (0.7-4.9); Absolute Monocytes 0.4 K/uL (0.1-1.3); Absolute Neutrophil 3.3 K/uL (1.8-8.0); Basophils % 0.3 % (0-1.3); Hematocrit 35.7 % (36.0-45.0); Lymphocytes % 29.8 % (15.3-44.8); MCH 31.5 pg (27.0-35.0); MCV 92.4 fL (80-100); Monocytes % 7.5 % (3.3-12.3); RBC Red Blood Cell Count 3.86 M/uL (3.86-4.86)
[2018-03-03 06:06] LABS: Potassium 4.7 mmol/L (3.5-5.1)
[2018-03-03] MEDS: ENOXAPARIN 80 MG/0.8 ML SQ SCH ×2 (09:00→20:59)
[2018-03-03] MEDS: CEFTRIAXONE/SWI 1gm 1 GM/10 ML SYR IV SCH (09:54)
[2018-03-03] MEDS: ASPIRIN EC 81 MG TAB PO SCH (09:55)
[2018-03-03] MEDS ORDERED: REGADENOSON 0.4 MG/5 ML SYR IV ONE (10:33)
--- NOTE | 2018-03-03 10:33 | RAD REPORT ---
EXAM DESCRIPTION: DEENA - ELMER - 03/03/2018 9:30 am CLINICAL HISTORY: Syncope COMPARISON: None. TECHNIQUE: Real-time sonographic evaluation of both carotid systems was performed. Grayscale and Dop pler interrogation was performed with waveform tracing bilaterally. FINDINGS: Normal high resistance waveforms are noted in both external carotid arteries. The common c arotid arteries and internal carotid arteries show normal low resistance waveforms. No significant plaque formation is seen. No dissection or focal stenosis identifiable. Right common c arotid velocity is 80 cm/second with ICA velocities ranging from 77-113 cm/second. A 1.4 ICA/CCA rati o noted on the right. Left common carotid velocity of 104 cm/second. Left ICA velocities range from 7 3-143 cm/second. The higher velocity value is believed to be due to tortuosity. On grayscale visual i nspection no significant disease is present. The left side demonstrated a 1.4 ICA/CCA ratio. Antegrade flow seen in both vertebral arteries. Velocity values and ratios were recorded and are retained in the patient's imaging records. IMPRESSION: No significant atherosclerotic changes noted. No evidence of a hemodynamically significant stenosis. Left ICA velocity elevation is believed to be due to tortuosity rather than atherosclerotic disease.
--- NOTE | 2018-03-03 12:14 | EKG ---
Test Date: 2018-03-03 Test Time: 07:19:07 Sports Intern: BONG MEASUREMENT RESULTS: Intervals: Rate: 46 ME: 140 QRSD: 106 QT: 480 QTc: 420 [place]: P: 53 ME: 140 QRS: 50 T: 54 INTERPRETIVE STATEMENTS: Marked sinus bradycardia Abnormal ECG Compared to ECG 03/02/2018 14:56:37 No significant changes Electronically Signed On 03-03-18 12:11:52 CDT by Bob Xavier
--- NOTE | 2018-03-03 12:42 | RAD REPORT ---
EXAM DESCRIPTION: NM - Rest Stress Cardiac Imaging - 03/03/2018 12:24 pm CLINICAL HISTORY: Chest pain COMPARISON: None. TECHNIQUE: The patient was administered 10.2 mCi of Tc 99m Sestamibi prior to resting SPECT imaging of the heart. The patient was then administered 31.8 mCi of Tc 99m Sestamibi following exercise or ph armacologic stress. Multiplanar SPECT images were reviewed. FINDINGS: The end diastolic volume is 110 ml, the end systolic volume is 26 ml, and the ejection fra ction is 76 %. No stress-induced ischemic changes identifiable. A small focus of decreased activity is seen anterose ptal wall not clearly different between rest and stress imaging. This may simply be breast attenuatio n artifact rather than scarring. No other area of possible scarring seen. IMPRESSION: No stress-induced ischemic change. Small focus diminished activity anteroseptal wall favored to be attenuation artifact over scarring. End-diastolic volume was 110 mL with normally ejection fraction of 76%.
--- NOTE | 2018-03-03 13:13 | TREADPHA ---
DX: CHEST PAIN Date of Study: 03/03/18 Ht: 5 1 Wt: 164 lb 0 oz Consulting Physician: ROBERTO MEDICATIONS: TYLENOL, ASPIRIN, ZOFRAN, LOVENOX, ROSEPHIN HISTORY: 67 YEAR OLD FEMALE HERE FOR CHEST PAIN. HISTORY OF CHRONIC KIDNEY DISEASE, HYPERTENSION, MIGRAINES, OSTEOPROROSIS, RESTLESS LEG SYNDROME. PHYSICIAL EXAMINATION: RESTING B.P.: 151/62 RESTING H.R.: 46 RESTING EKG: SINUS BRADYCARDIA PROTOCOL: LEXISCAN EXERCISE TIME: 3:30 B.P. AT [place] STRESS: 147/59 IMPRESSION: LEXISCAN STRESS TEST PERFORMED. CARDIOLITE INJECTED PER PROTOCOL. NO ARRHYTHMIAS NOTED. COMPLAINTS 5/10 ON PAIN SCALE, CHEST TIGHTNESS DURING STRESS TEST THAT REDUCED POST TEST. SEE NUCLEAR MEDICINE REPORT.
[2018-03-03] MEDS ORDERED: HYDROCODONE/APAP 5/325 MG TAB PO PRN (14:49)
[2018-03-03] MEDS ORDERED: ONDANSETRON 4 MG (ODT) TAB PO PRN (14:49)
[2018-03-03] MEDS ORDERED: DOCUSATE NA 100 MG CAP PO PRN (14:49)
[2018-03-03] MEDS ORDERED: TRAMADOL HCL 50 MG TAB PO PRN (14:49)
[2018-03-03] MEDS: PANTOPRAZOLE 40MG TABLET PO SCH (17:19)
[2018-03-03] MEDS: CALCIUM CARB 500MG/VIT D 200 IU TAB PO SCH (20:59)
[2018-03-03] MEDS ORDERED: ROPINIROLE HCL 1 MG TAB PO SCH (21:00)
--- NOTE | 2018-03-04 02:15 | CON ---
Date of Consultation: 03/03/2018 Reason For Consultation: Syncope and chest pain. History Of Present Illness: Ms. Mcknight is a 67-year-old white woman. She has no previous cardiac h istory. She has a history of chronic renal disease, although her creatinine is normal here. Has a h istory of hypertension, osteoporosis, and migraine. Apparently, had an episode of a sharp stabbing c hest pain over the left chest, then she fell after that. She was syncopal, had some fall, but no inj ury. She had a negative extensive workup from an x-ray standpoint including CT of her head, chest, a bdomen, and pelvis, all of which were negative. She had a BNP of 72, otherwise she had a normal ches t x-ray, normal EKG, normal venous Doppler, and normal arterial Doppler. She has some esterase in th e urine. She came in with blood pressure of 192/90 and was asymptomatic. Past Medical History: Negative. Allergies: NONE. Medications: At home include lisinopril. Review of Systems: Negative. Social History: Negative. Family History: Negative. Physical Examination: Vital Signs: When I saw her, her pressure was down to 150/84, she was in sinus rhythm, afebrile, in no acute distress. HEENT: Negative. Neck: Supple without any bruit, lymphadenopathy, JVD, or thyromegaly. Chest: Clear to auscultation and percussion. Cardiac: Revealed a regular rhythm and rate without any murmurs, gallops, or rubs. Abdomen: Benign. Extremities: Reveal no clubbing, cyanosis, or edema. Diagnostic Data: As stated earlier. Impression And Plan: Syncope, most likely secondary to vagal reaction from her pleuritic chest pain. I doubt that she has any coronary artery disease. I do not think this is an acute coronary syndrom e, but nevertheless she has hypertension. She is 67 and she did have a lucy syncopal episode and I would like her to get an echocardiogram, a Lexiscan, and a carotid Doppler before we make any further decisions. STEFANI/LEILANIL Voice ID: [id number] Report ID: [id number]
--- NOTE | 2018-03-04 08:06 | ECHO ---
HEIGHT: 5 ft 1 in WEIGHT: 164 lb 0 oz DATE OF STUDY: 03/03/[address]: Geovani Barnett MD 2-DIMENSIONAL: YES M.MODE: YES DOPPLER: YES COLOR FLOW: YES TDS: PORTABLE: DEFINITY: BUBBLE STUDY: DIAGNOSIS: CHEST PAIN CARDIAC HISTORY: CATHERIZATION: NO SURGERY: NO PROSTHETIC VALVE: NO PACEMAKER: NO MEASUREMENTS (cm) DIASTOLIC (NORMALS) SYSTOLIC (NORMALS) IVSd 0.8 (0.6-1.2) LA Diam 5.2 (1.9-4.0) LVEF 70% LVIDd 4.8 (3.5-5.7) LVIDs 2.9 (2.0-3.5) %FS 40% LVPWd 0.9 (0.6-1.2) Ao Diam 3.0 (2.0-3.7) 2 DIMENSIONAL ASSESSMENT: RIGHT ATRIUM: NORMAL LEFT ATRIUM: NORMAL RIGHT VENTRICLE: NORMAL LEFT VENTRICLE: NORMAL TRICUSPID VALVE: NORMAL MITRAL VALVE: NORMAL PULMONIC VALVE: NORMAL AORTIC VALVE: NORMAL PERICARDIAL EFFUSION: NONE AORTIC ROOT: NORMAL LEFT VENTRICULAR WALL MOTION: NORMAL DOPPLER/COLOR FLOW: MILD TRICUSPID REGURGITATION COMMENTS: MILD TRICUSPID REGURGITATION. NORMAL RIGHT VENTRICULAR SYSTOLIC PRESSURE. LEFT ATRIAL ENLARGEMENT. NORMAL LEFT VENTRICULAR SIZE AND FUNCTION. NO EFFUSION. TECHNOLOGIST: ORLANDO BOSE
[2018-03-04 09:07] VITALS: TEMP 97
[2018-03-04] MEDS: ASPIRIN EC 81 MG TAB PO SCH (09:10)
[2018-03-04] MEDS: CALCIUM CARB 500MG/VIT D 200 IU TAB PO SCH (09:10)
[2018-03-04] MEDS: PANTOPRAZOLE 40MG TABLET PO SCH (09:10)
[2018-03-04] MEDS: ENOXAPARIN 80 MG/0.8 ML SQ SCH (09:11)
[2018-03-04] MEDS: CEFTRIAXONE/SWI 1gm 1 GM/10 ML SYR IV SCH (09:11)
[2018-03-04 09:13] VITALS: O2SAT 98
[2018-03-04 18:41] VITALS: BP 112/53
--- NOTE | 2018-03-04 19:26 | PN ---
Date of Progress Note: 03/03/2018 Subjective: The patient states she felt somewhat better until earlier in the day when she was in the bathroom and she suddenly felt somewhat similar to the episode that brought her to the ER except the re was no chest pain with that. She developed some, what she felt was a very rapid heart beat. Unfo rtunately, the telemetry was not on. She has just returned from radiological studies and was up to t he bathroom. When she got back to bed, she stated her rhythm felt back to normal. Then I did swing this in what as mentioned precipitated her visit here. Her mind was the pain which was not present o n this occasion. Her workup to date has been negative, possible she has a sick sinus type syndrome a nd Cardiology will be consulted for this. HR/MODL Voice ID: [id number] Report ID: [id number]
--- NOTE | 2018-03-04 19:39 | HP ---
Date of Admission: 03/02/2018 Entrance Complaint: Chest pain and shortness of breath. History Of Present Illness: The patient states she was fine and was at her sink when she suddenly be came very weak, had difficulty standing. She felt faint. She has some chest discomfort in the anter ior portion with some radiation laterally and medially, and next thing she knew she was on the floor. She felt was probably out for approximately 5 minutes and she call on her phone and family members came to her aid and brought her to the emergency room for evaluation. Past Medical History: Significant, patient had gastric bypass surgery in the past. She also had sig nificant osteoporosis with multiple back fractures. She has been treated clinically in [place] and [facility]. Although, symptomatically have been somewhat better. History of hypertension controlled. Social History: Nonsmoker, nondrinker. Family History: The patient has been under some stress over the past few years due to the physical a nd social scenario. Physical Examination: Vital Signs: At present, patient is comfortable, elderly female, lying in bed. Vital Signs: Stable. Head and Neck: Normocephalic. Pupils equal and reactive to light and accommodation. Fundi negative . Trachea midline. Thyroid not palpable. ENT: Negative. Chest: Clear to P and A. Breasts: Pendulous, negative. Cardiovascular: PMI midclavicular line. Heart: Sounds normal. Peripheral pulses are present and equal bilaterally. Abdomen: No organomegaly. Bowel sounds present. Extremities: Good tone and movement bilaterally. Reflexes physiologic. Decreased motion in the robert k area, especially the lumbosacral. Rectal: Deferred. Pelvic: Deferred. Impression: Vasovagal syncope, chest pain atypical. Plan: The patient will be admitted. Placed on telemetry. A cardiac workup will ensue. Depending o n the results, further treatment may be necessary. HR/MODL Voice ID: [id number]
--- NOTE | 2018-03-05 21:49 | PN ---
Date of Progress Note: 03/04/2018 The patient states she feels considerably better this afternoon. She had no further episodes other t vines the one she reported when she went to the bathroom somewhat similar to the initial one except wit hout the pain, but her telemetry today has been normal. She was seen by cardiac, status seems normal . Cardiology felt possibly the use of an outpatient telemetry might aid, otherwise if possible it wa s a drug-related thing. I therefore discharged her on usual medication and withheld her Requip to fo llow up next week. HR/MODL Voice ID: [id number] Report ID: [id number]
== END 2018-03-04 18:48 | disposition home or self-care (01) ==
LOC: ER 14:45 → ERHOLD 18:27 → 4TH 19:35
PROVIDERS: ADMIT Family Medicine; ATTEND Family Medicine
DX: R55 Syncope and collapse (principal); R07.89 Other chest pain; Z98.84 Bariatric surgery status; M81.0 Age-related osteoporosis without current pathological fracture; I10 Essential (primary) hypertension
CPT/HCPCS: 36415; 70450; 71045; 71260; 72125; 74177; 78452; 80048 ×2; 80076; 81003; 82550; 82553; 83735; 83880; 84484 ×3; 85025 ×2; 85610; 85730; 87077; 87086; 87088; 87186; 93005 ×2; 93017; 93306; 93880; 96372; 99285; A9500; G0378 ×2; J0696 ×3; J1650 ×3; J2405 ×7; J2785; J3010 ×2; J7030; Q9967; 96361; 96365; 96375

== ENCOUNTER 2018-10-12 10:11 | Observation (INO) | payer MEDICARE ==
--- OUTSIDE RECORDS SUMMARY | 2018-10-12 10:17 | XMS REPORT ---
:1950 [facility] Address [address] [place] [address] [address] [place] [address] Care Team Providers Name Role Phone LIONEL [...] Value Reference Range Comments CULTURE (BEAKER) (test lifm=7784) No growth in 5 days BLOOD [id number] 13:58:00 Test Item Value Reference Range Comments CULTURE (BEAKER) (test jdzv=4867) No growth in 5 days POCT-GLUCOSE [id number] 08:47:00 Test Item Value Reference Range Comments POC-GLUCOSE METER (BEAKER) 112 mg/dL 70-110 TESTED AT [facility] [address] [facility] (test jyuc=6212) [facility] [address] [id number] 05:04:00 Test Item Value Reference Range Comments CREATININE (BEAKER) (test 0.72 mg/dL 0.57-1.25 kscw=330) EGFR (BEAKER) (test 81 mL/min/1.73 sq m ESTIMATED GFR IS NOT bbff=2156) ACCURATE CREATININE CLEARANCE IN PREDICTING GLOMERULAR FILTRATION RATE. ESTIMATED GFR IS NOT APPLICABLE FOR DIALYSIS PATIENTS. SPUTUM CULTURE + GRAM [id number] 04:13:00 Test Item Value Reference Range Comments CULTURE (BEAKER) (test 3+ Normal respiratory kirstie kgrr=6284) present GRAM STAIN RESULT (BEAKER) 2+ WBCs (test finv=7285) GRAM STAIN RESULT (BEAKER) 10-15 epithelial cells (test tbgl=07258) GRAM STAIN RESULT (BEAKER) 1+ gram positive rods (test rkks=81224) GRAM STAIN RESULT (BEAKER) 3+ gram positive cocci in pairs (test wcud=331782) GRAM STAIN RESULT (BEAKER) <1+ gram positive cocci in (test hqec=258554) clusters POCT-GLUCOSE [id number] 21:46:00 Test Item Value Reference Range Comments POC-GLUCOSE METER (BEAKER) 137 mg/dL 70-110 TESTED AT [address] (test yobo=4753) [place] [address] POCT-GLUCOSE [id number] 18:03:00 Test Item Value Reference Range Comments POC-GLUCOSE METER (BEAKER) 95 mg/dL 70-110 TESTED AT [address] (test fmku=2445) [place] [address] POCT-GLUCOSE [id number] 12:59:00 Test Item Value Reference Range Comments POC-GLUCOSE METER (BEAKER) 110 mg/dL 70-110 TESTED AT [address] (test ifye=6582) [place] [id number] POCT-GLUCOSE [id number] 08:29:00 Test Item Value Reference Range Comments POC-GLUCOSE METER (BEAKER) 90 mg/dL 70-110 TESTED AT [address] (test xjzx=1696) [place] [address] VANCOMYCIN LEVEL, [id number] 23:29:00 Test Item Value Reference Range Comments VANCOMYCIN TROUGH (BEAKER) (test ddhx=582) 20.0 ug/mL 10.0-20.0 Draw trough level prior to dose administration.POCT-GLUCOSE [id number] 21: 05:00 Test Item Value Reference Range Comments POC-GLUCOSE METER (BEAKER) 92 mg/dL 70-110 TESTED AT [address] (test xrcb=4606) [place] [id number] POCT-GLUCOSE [id number] 17:04:00 Test Item Value Reference Range Comments POC-GLUCOSE METER (BEAKER) 121 mg/dL 70-110 TESTED AT [address] (test pipa=3992) [place] [id number] POCT-GLUCOSE [id number] 12:25:00 Test Item Value Reference Range Comments POC-GLUCOSE METER (BEAKER) 94 mg/dL 70-110 TESTED AT [address] (test arbz=4138) [facility] [address] POCT-GLUCOSE [id number] 08:47:00 Test Item Value Reference Range Comments POC-GLUCOSE METER (BEAKER) 98 mg/dL 70-110 TESTED AT [address] (test tocm=4221) [facility] [address] POCT-GLUCOSE [id number] 22:35:00 Test Item Value Reference Range Comments POC-GLUCOSE METER (BEAKER) 124 mg/dL 70-110 TESTED AT [address] (test avmf=5461) [facility] [address] POCT-GLUCOSE [id number] 17:08:00 Test Item Value Reference Range Comments POC-GLUCOSE METER (BEAKER) 256 mg/dL 70-110 TESTED AT [address] (test chur=5836) [facility] [address] POCT-GLUCOSE [id number] 12:45:00 Test Item Value Reference Range Comments POC-GLUCOSE METER (BEAKER) 112 mg/dL 70-110 TESTED AT [address] (test vher=8635) [facility] [address] POCT-GLUCOSE [id number] 07:37:00 Test Item Value Reference Range Comments POC-GLUCOSE METER (BEAKER) 105 mg/dL 70-110 TESTED AT [address] (test wayc=2757) [facility] [address] CBC W/PLT COUNT & AUTO [id number] 05:55:00 Test Item Value Reference Range Comments WHITE BLOOD CELL COUNT (BEAKER) (test mdhb=320) 5.5 K/ L 4.0-10.0 RED BLOOD CELL COUNT (BEAKER) (test cihi=796) 4.11 M/ L 4.00-5.00 HEMOGLOBIN (BEAKER) (test ttfl=178) 12.6 GM/DL 12.0-15.0 HEMATOCRIT (BEAKER) (test dwat=214) 38.0 % 36.0-45.0 MEAN CORPUSCULAR VOLUME (BEAKER) (test kfxu=460) 92.3 fL 82.0-99.0 MEAN CORPUSCULAR HEMOGLOBIN (BEAKER) (test 30.6 pg 27.0-33.0 ljgi=227) MEAN CORPUSCULAR HEMOGLOBIN CONC (BEAKER) (test 33.1 GM/DL 32.0-36.0 gjsh=664) RED CELL DISTRIBUTION WIDTH (BEAKER) (test 13.5 % 10.3-14.2 ykcp=908) PLATELET COUNT (BEAKER) (test xdri=336) 190 K/CU MM 150-430 MEAN PLATELET VOLUME (BEAKER) (test hnhj=108) 6.9 fL 6.5-10.5 NUCLEATED RED BLOOD CELLS (BEAKER) (test 0 /100 WBC 0-0 zibp=035) NEUTROPHILS RELATIVE PERCENT (BEAKER) (test 48 % ekia=220) LYMPHOCYTES RELATIVE PERCENT (BEAKER) (test 40 % ghrs=470) MONOCYTES RELATIVE PERCENT (BEAKER) (test 6 % brxr=689) EOSINOPHILS RELATIVE PERCENT (BEAKER) (test 6 % qebm=870) BASOPHILS RELATIVE PERCENT (BEAKER) (test 1 % sdnv=453) NEUTROPHILS ABSOLUTE COUNT (BEAKER) (test 2.62 K/ L 1.80-8.00 bgeo=165) LYMPHOCYTES ABSOLUTE COUNT (BEAKER) (test 2.18 K/ L 1.48-4.50 mbvi=235) MONOCYTES ABSOLUTE COUNT (BEAKER) (test 0.33 K/ L 0.00-1.30 mlwa=733) EOSINOPHILS ABSOLUTE COUNT (BEAKER) (test 0.31 K/ L 0.00-0.50 vumj=642) BASOPHILS ABSOLUTE COUNT (BEAKER) (test 0.03 K/ L 0.00-0.20 rsgv=497) 0.00[facility] METABOLIC [id number] 05:31:00 Test Item Value Reference Range Comments SODIUM (BEAKER) (test 140 meq/L 136-145 kprv=406) POTASSIUM (BEAKER) (test 3.8 meq/L 3.5-5.1 stgk=914) CHLORIDE (BEAKER) (test 102 meq/L 98-107 ohpf=938) CO2 (BEAKER) (test 28 meq/L 22-29 kges=076) BLOOD UREA NITROGEN 9 mg/dL 7-21 (BEAKER) (test xmkx=822) CREATININE (BEAKER) (test 0.75 mg/dL 0.57-1.25 znoh=459) GLUCOSE RANDOM (BEAKER) 102 mg/dL 70-105 (test bwmo=303) CALCIUM (BEAKER) (test 9.0 mg/dL 8.4-10.2 csrq=018) EGFR (BEAKER) (test 77 mL/min/1.73 sq m ESTIMATED GFR IS NOT dhnn=2192) ACCURATE CREATININE CLEARANCE IN PREDICTING GLOMERULAR FILTRATION RATE. ESTIMATED GFR IS NOT APPLICABLE FOR DIALYSIS PATIENTS. POCT-GLUCOSE [id number] 21:44:00 Test Item Value Reference Range Comments POC-GLUCOSE METER (BEAKER) 112 mg/dL 70-110 TESTED AT [address] (test uqcu=4757) [place] [address] POCT-GLUCOSE [id number] 18:23:00 Test Item Value Reference Range Comments POC-GLUCOSE METER (BEAKER) 105 mg/dL 70-110 TESTED AT [address] (test quhh=1409) [place] [address] POCT-GLUCOSE [id number] 11:59:00 Test Item Value Reference Range Comments POC-GLUCOSE METER (BEAKER) 102 mg/dL 70-110 TESTED AT [address] (test zjnl=4043) [place] [id number] POCT-GLUCOSE [id number] 07:55:00 Test Item Value Reference Range Comments POC-GLUCOSE METER (BEAKER) 90 mg/dL 70-110 TESTED AT [address] (test haub=9863) [place] [id number] POCT-GLUCOSE [id number] 21:28:00 Test Item Value Reference Range Comments POC-GLUCOSE METER (BEAKER) 170 mg/dL 70-110 TESTED AT [address] (test pgpr=9698) [place] [id number] POCT-GLUCOSE [id number] 16:06:00 Test Item Value Reference Range Comments POC-GLUCOSE METER (BEAKER) 91 mg/dL 70-110 TESTED AT [address] (test lseq=6891) [place] [address] POCT-GLUCOSE [id number] 09:09:00 Test Item Value Reference Range Comments POC-GLUCOSE METER (BEAKER) 151 mg/dL 70-110 TESTED AT [address] (test nsfa=4448) [place] [id number] CBC W/PLT COUNT & AUTO [id number] 06:15:00 Test Item Value Reference Range Comments WHITE BLOOD CELL COUNT (BEAKER) (test rfak=625) 6.0 K/ L 4.0-10.0 RED BLOOD CELL COUNT (BEAKER) (test kblj=329) 3.82 M/ L 4.00-5.00 HEMOGLOBIN (BEAKER) (test kkop=903) 11.6 GM/DL 12.0-15.0 HEMATOCRIT (BEAKER) (test zjhe=528) 35.3 % 36.0-45.0 MEAN CORPUSCULAR VOLUME (BEAKER) (test dyjt=241) 92.5 fL 82.0-99.0 MEAN CORPUSCULAR HEMOGLOBIN (BEAKER) (test 30.5 pg 27.0-33.0 ustx=596) MEAN CORPUSCULAR HEMOGLOBIN CONC (BEAKER) (test 33.0 GM/DL 32.0-36.0 cwzs=313) RED CELL DISTRIBUTION WIDTH (BEAKER) (test 13.5 % 10.3-14.2 cntx=334) PLATELET COUNT (BEAKER) (test yzue=693) 149 K/CU MM 150-430 MEAN PLATELET VOLUME (BEAKER) (test nfwe=897) 6.8 fL 6.5-10.5 NUCLEATED RED BLOOD CELLS (BEAKER) (test 0 /100 WBC 0-0 gsps=729) NEUTROPHILS RELATIVE PERCENT (BEAKER) (test 51 % jsyn=705) LYMPHOCYTES RELATIVE PERCENT (BEAKER) (test 39 % zxut=824) MONOCYTES RELATIVE PERCENT (BEAKER) (test 5 % nanu=767) EOSINOPHILS RELATIVE PERCENT (BEAKER) (test 5 % qwkc=733) BASOPHILS RELATIVE PERCENT (BEAKER) (test 1 % pgqq=639) NEUTROPHILS ABSOLUTE COUNT (BEAKER) (test 3.04 K/ L 1.80-8.00 czdb=882) LYMPHOCYTES ABSOLUTE COUNT (BEAKER) (test 2.31 K/ L 1.48-4.50 mgej=226) MONOCYTES ABSOLUTE COUNT (BEAKER) (test 0.33 K/ L 0.00-1.30 ngfg=043) EOSINOPHILS ABSOLUTE COUNT (BEAKER) (test 0.29 K/ L 0.00-0.50 uobk=439) BASOPHILS ABSOLUTE COUNT (BEAKER) (test 0.04 K/ L 0.00-0.20 vdcc=127) 0.00BASI METABOLIC [id number] 06:14:00 Test Item Value Reference Range Comments SODIUM (BEAKER) (test 141 meq/L 136-145 xcve=004) POTASSIUM (BEAKER) (test 3.8 meq/L 3.5-5.1 ohco=825) CHLORIDE (BEAKER) (test 105 meq/L 98-107 mumq=395) CO2 (BEAKER) (test 27 meq/L 22-29 msls=286) BLOOD UREA NITROGEN 13 mg/dL 7-21 (BEAKER) (test vfzu=836) CREATININE (BEAKER) (test 0.69 mg/dL 0.57-1.25 oueg=981) GLUCOSE RANDOM (BEAKER) 109 mg/dL 70-105 (test jgdx=261) CALCIUM (BEAKER) (test 8.6 mg/dL 8.4-10.2 ewmb=097) EGFR (BEAKER) (test 85 mL/min/1.73 sq m ESTIMATED GFR IS NOT hkid=3795) ACCURATE CREATININE CLEARANCE IN PREDICTING GLOMERULAR FILTRATION RATE. ESTIMATED GFR IS NOT APPLICABLE FOR DIALYSIS PATIENTS. POCT-GLUCOSE [id number] 21:21:00 Test Item Value Reference Range Comments POC-GLUCOSE METER (BEAKER) 120 mg/dL 70-110 TESTED AT [facility] [address] [facility] (test lpwv=8946) [facility] [address] CBC W/PLT COUNT & AUTO [id number] 08:26:00 Test Item Value Reference Range Comments WHITE BLOOD CELL COUNT (BEAKER) (test whkj=483) 7.3 K/ L 4.0-10.0 RED BLOOD CELL COUNT (BEAKER) (test qttp=497) 4.08 M/ L 4.00-5.00 HEMOGLOBIN (BEAKER) (test tbrs=458) 13.1 GM/DL 12.0-15.0 HEMATOCRIT (BEAKER) (test mlvg=632) 37.5 % 36.0-45.0 MEAN CORPUSCULAR VOLUME (BEAKER) (test poap=738) 91.8 fL 82.0-99.0 MEAN CORPUSCULAR HEMOGLOBIN (BEAKER) (test 32.0 pg 27.0-33.0 kiae=810) MEAN CORPUSCULAR HEMOGLOBIN CONC (BEAKER) (test 34.9 GM/DL 32.0-36.0 iojh=259) RED CELL DISTRIBUTION WIDTH (BEAKER) (test 13.5 % 10.3-14.2 brbb=672) PLATELET COUNT (BEAKER) (test rdly=908) 168 K/CU MM 150-430 MEAN PLATELET VOLUME (BEAKER) (test flvg=939) 7.0 fL 6.5-10.5 NUCLEATED RED BLOOD CELLS (BEAKER) (test 0 /100 WBC 0-0 xlyq=902) NEUTROPHILS RELATIVE PERCENT (BEAKER) (test 91 % cxdz=331) LYMPHOCYTES RELATIVE PERCENT (BEAKER) (test 7 % szph=968) MONOCYTES RELATIVE PERCENT (BEAKER) (test 2 % esks=537) EOSINOPHILS RELATIVE PERCENT (BEAKER) (test 0 % pgoi=495) BASOPHILS RELATIVE PERCENT (BEAKER) (test 0 % mcvi=864) NEUTROPHILS ABSOLUTE COUNT (BEAKER) (test 6.67 K/ L 1.80-8.00 jbiu=161) LYMPHOCYTES ABSOLUTE COUNT (BEAKER) (test 0.48 K/ L 1.48-4.50 numv=748) MONOCYTES ABSOLUTE COUNT (BEAKER) (test 0.13 K/ L 0.00-1.30 zdyo=720) EOSINOPHILS ABSOLUTE COUNT (BEAKER) (test 0.02 K/ L 0.00-0.50 qlvk=549) BASOPHILS ABSOLUTE COUNT (BEAKER) (test 0.01 K/ L 0.00-0.20 meyt=739) 0.00BASIC METABOLIC [id number] 07:02:00 Test Item Value Reference Range Comments SODIUM (BEAKER) (test 140 meq/L 136-145 vfbd=365) POTASSIUM (BEAKER) (test 4.4 meq/L 3.5-5.1 wqzc=044) CHLORIDE (BEAKER) (test 103 meq/L 98-107 bahh=597) CO2 (BEAKER) (test 24 meq/L 22-29 ywns=982) BLOOD UREA NITROGEN 12 mg/dL 7-21 (BEAKER) (test bqjk=857) CREATININE (BEAKER) (test 0.79 mg/dL 0.57-1.25 yjyr=769) GLUCOSE RANDOM (BEAKER) 162 mg/dL 70-105 (test qapr=245) CALCIUM (BEAKER) (test 9.0 mg/dL 8.4-10.2 czfz=002) EGFR (BEAKER) (test 73 mL/min/1.73 sq m ESTIMATED GFR IS NOT xwhi=1500) ACCURATE CREATININE CLEARANCE IN PREDICTING GLOMERULAR FILTRATION RATE. ESTIMATED GFR IS NOT APPLICABLE FOR DIALYSIS PATIENTS. POCT-GLUCOSE [id number] 18:29:00 Test Item Value Reference Range Comments POC-GLUCOSE METER (BEAKER) 119 mg/dL 70-110 TESTED AT [facility] [address] (test ucsw=4433) [facility] [address] BASIC METABOLIC [id number] 06:46:00 Test Item Value Reference Range Comments SODIUM (BEAKER) (test 142 meq/L 136-145 poen=142) POTASSIUM (BEAKER) (test 4.0 meq/L 3.5-5.1 cnqk=056) CHLORIDE (BEAKER) (test 106 meq/L 98-107 orrx=995) CO2 (BEAKER) (test 26 meq/L 22-29 brpe=230) BLOOD UREA NITROGEN 12 mg/dL 7-21 (BEAKER) (test xrrn=789) CREATININE (BEAKER) (test 0.75 mg/dL 0.57-1.25 gxyd=522) GLUCOSE RANDOM (BEAKER) 105 mg/dL 70-105 (test tnqh=264) CALCIUM (BEAKER) (test 9.2 mg/dL 8.4-10.2 bgdq=680) EGFR (BEAKER) (test 77 mL/min/1.73 sq m ESTIMATED GFR IS NOT baln=9095) ACCURATE CREATININE CLEARANCE IN PREDICTING GLOMERULAR FILTRATION RATE. ESTIMATED GFR IS NOT APPLICABLE FOR DIALYSIS PATIENTS. [id number] 06:10:00 Test Item Value Reference Range Comments PROTIME (BEAKER) (test sjnl=819) 13.4 seconds 11.7-14.7 INR (BEAKER) (test rfdg=297) 1.0 <=5.9 PARTIAL THROMBOPLASTIN TIME (BEAKER) (test 32.8 seconds 22.5-36.0 scut=598) RECOMMENDED COUMADIN/WARFARIN INR THERAPY RANGESSTANDARD DOSE: 2.0 - 3.0 Includes: PROPHYLAXIS forvenous thrombosis, systemic embolization; TREATMENT for venous thrombosis and/or pulmonary embolus.HIGH RISK: Target INR is 2.5-3.5 for patients with mechanical heart valves.CBC W/PLT COUNT & AUTO [id number] 05:58:00 Test Item Value Reference Range Comments WHITE BLOOD CELL COUNT (BEAKER) (test ndyq=040) 5.1 K/ L 4.0-10.0 RED BLOOD CELL COUNT (BEAKER) (test kygq=394) 4.04 M/ L 4.00-5.00 HEMOGLOBIN (BEAKER) (test rtpe=480) 12.4 GM/DL 12.0-15.0 HEMATOCRIT (BEAKER) (test zswd=183) 37.0 % 36.0-45.0 MEAN CORPUSCULAR VOLUME (BEAKER) (test asau=789) 91.5 fL 82.0-99.0 MEAN CORPUSCULAR HEMOGLOBIN (BEAKER) (test 30.7 pg 27.0-33.0 llvb=619) MEAN CORPUSCULAR HEMOGLOBIN CONC (BEAKER) (test 33.6 GM/DL 32.0-36.0 dbkl=666) RED CELL DISTRIBUTION WIDTH (BEAKER) (test 14.7 % 10.3-14.2 alpm=170) PLATELET COUNT (BEAKER) (test mmlq=767) 184 K/CU MM 150-430 MEAN PLATELET VOLUME (BEAKER) (test lorw=302) 6.8 fL 6.5-10.5 NUCLEATED RED BLOOD CELLS (BEAKER) (test 0 /100 WBC 0-0 wnsu=792) NEUTROPHILS RELATIVE PERCENT (BEAKER) (test 57 % lxsn=238) LYMPHOCYTES RELATIVE PERCENT (BEAKER) (test 32 % bjwo=856) MONOCYTES RELATIVE PERCENT (BEAKER) (test 7 % mdrx=112) EOSINOPHILS RELATIVE PERCENT (BEAKER) (test 3 % lwas=749) BASOPHILS RELATIVE PERCENT (BEAKER) (test 1 % wtcr=844) NEUTROPHILS ABSOLUTE COUNT (BEAKER) (test 2.90 K/ L 1.80-8.00 ckzm=129) LYMPHOCYTES ABSOLUTE COUNT (BEAKER) (test 1.64 K/ L 1.48-4.50 jlcu=258) MONOCYTES ABSOLUTE COUNT (BEAKER) (test 0.37 K/ L 0.00-1.30 szcg=426) EOSINOPHILS ABSOLUTE COUNT (BEAKER) (test 0.15 K/ L 0.00-0.50 kxjz=859) BASOPHILS ABSOLUTE COUNT (BEAKER) (test 0.03 K/ L 0.00-0.20 gqqv=751) 0.00POCT-GLUCOSE [id number] 16:30:00 Test Item Value Reference Range Comments POC-GLUCOSE METER (BEAKER) 122 mg/dL 70-110 TESTED AT [facility] [address] [facility] (test ulkf=0153) [facility] [address] POCT-GLUCOSE [id number] 07:10:00 Test Item Value Reference Range Comments POC-GLUCOSE METER (BEAKER) 85 mg/dL 70-110 TESTED AT [address] (test hlbk=7373) [facility] [address] POCT-GLUCOSE [id number] 21:27:00 Test Item Value Reference Range Comments POC-GLUCOSE METER (BEAKER) 130 mg/dL 70-110 TESTED AT [address] (test qjgk=9660) [facility] [address] HEMOGLOBIN [id number] 21:02:00 Test Item Value Reference Range Comments HEMOGLOBIN A1C (BEAKER) (test quyf=658) 4.9 % 4.3-6.1 [id number] 17:23:00 Test Item Value Reference Range Comments PROTIME (BEAKER) (test wfwv=718) 13.8 seconds 11.7-14.7 INR (BEAKER) (test aghg=840) 1.1 <=5.9 PARTIAL THROMBOPLASTIN TIME (BEAKER) (test 27.6 seconds 22.5-36.0 auil=998) RECOMMENDED COUMADIN/WARFARIN INR THERAPY RANGESSTANDARD DOSE: 2.0 - 3.0 Includes: PROPHYLAXIS forvenous thrombosis, systemic embolization; TREATMENT for venous thrombosis and/or pulmonary embolus.HIGH RISK: Target INR is 2.5-3.5 for patients with mechanical heart valves.BASIC METABOLIC [id number] 14:37: 00 Test Item Value Reference Range Comments SODIUM (BEAKER) (test 143 meq/L 136-145 ybcm=349) POTASSIUM (BEAKER) (test 3.7 meq/L 3.5-5.1 ucbr=932) CHLORIDE (BEAKER) (test 107 meq/L 98-107 lseb=832) CO2 (BEAKER) (test 27 meq/L 22-29 lrht=501) BLOOD UREA NITROGEN 15 mg/dL 7-21 (BEAKER) (test qjdn=894) CREATININE (BEAKER) 0.76 mg/dL 0.57-1.25 (test lvms=778) GLUCOSE RANDOM (BEAKER) 77 mg/dL 70-105 (test gnys=673) CALCIUM (BEAKER) (test 9.6 mg/dL 8.4-10.2 fakq=437) EGFR (BEAKER) (test 76 mL/min/1.73 sq m INSUFFICIENT CLINICAL DATA sjqh=8959) TO CALCULATE ESTIMATED GFR. CBC W/PLT COUNT & AUTO [id number] 14:18:00 Test Item Value Reference Range Comments WHITE BLOOD CELL COUNT (BEAKER) (test xcsd=727) 6.7 K/ L 4.0-10.0 RED BLOOD CELL COUNT (BEAKER) (test krgt=204) 4.41 M/ L 4.00-5.00 HEMOGLOBIN (BEAKER) (test jqjt=003) 13.4 GM/DL 12.0-15.0 HEMATOCRIT (BEAKER) (test swvs=540) 39.7 % 36.0-45.0 MEAN CORPUSCULAR VOLUME (BEAKER) (test srgf=552) 90.1 fL 82.0-99.0 MEAN CORPUSCULAR HEMOGLOBIN (BEAKER) (test 30.4 pg 27.0-33.0 jgzu=917) MEAN CORPUSCULAR HEMOGLOBIN CONC (BEAKER) (test 33.8 GM/DL 32.0-36.0 rahp=858) RED CELL DISTRIBUTION WIDTH (BEAKER) (test 14.6 % 10.3-14.2 tsrh=644) PLATELET COUNT (BEAKER) (test vfuz=533) 219 K/CU MM 150-430 MEAN PLATELET VOLUME (BEAKER) (test jbxr=277) 6.4 fL 6.5-10.5 NUCLEATED RED BLOOD CELLS (BEAKER) (test 0 /100 WBC 0-0 jeys=358) NEUTROPHILS RELATIVE PERCENT (BEAKER) (test 69 % offt=408) LYMPHOCYTES RELATIVE PERCENT (BEAKER) (test 21 % elzs=646) MONOCYTES RELATIVE PERCENT (BEAKER) (test 7 % hcfo=091) EOSINOPHILS RELATIVE PERCENT (BEAKER) (test 2 % gvpf=065) BASOPHILS RELATIVE PERCENT (BEAKER) (test 1 % ufrv=976) NEUTROPHILS ABSOLUTE COUNT (BEAKER) (test 4.58 K/ L 1.80-8.00 wjcu=449) LYMPHOCYTES ABSOLUTE COUNT (BEAKER) (test 1.43 K/ L 1.48-4.50 mvge=369) MONOCYTES ABSOLUTE COUNT (BEAKER) (test 0.45 K/ L 0.00-1.30 gopn=609) EOSINOPHILS ABSOLUTE COUNT (BEAKER) (test 0.15 K/ L 0.00-0.50 cnki=688) BASOPHILS ABSOLUTE COUNT (BEAKER) (test 0.06 K/ L 0.00-0.20 gipr=936) 0.00POCT-GLUCOSE [id number] 11:43:00 Test Item Value Reference Range Comments POC-GLUCOSE METER (BEAKER) 87 mg/dL 70-110 TESTED AT [address] (test yrhw=5058) [facility] [id number] POCT-GLUCOSE [id number] 08:40:00 Test Item Value Reference Range Comments POC-GLUCOSE METER (BEAKER) 82 mg/dL 70-110 TESTED AT [address] (test cdwr=1707) [place] [id number] VITAMIN D, [id number] 05:43:00 Test Item Value Reference Range Comments VITAMIN D 25-OH (BEAKER) (test mnxe=7230) 31.0 ng/mL 13.0-47.8 BASIC METABOLIC [id number] 05:22:00 Test Item Value Reference Range Comments SODIUM (BEAKER) (test 139 meq/L 136-145 abzp=908) POTASSIUM (BEAKER) (test 4.1 meq/L 3.5-5.1 agmt=008) CHLORIDE (BEAKER) (test 106 meq/L 98-107 ryiz=690) CO2 (BEAKER) (test 25 meq/L 22-29 cass=403) BLOOD UREA NITROGEN 11 mg/dL 7-21 (BEAKER) (test bgev=547) CREATININE (BEAKER) (test 0.70 mg/dL 0.57-1.25 nyko=126) GLUCOSE RANDOM (BEAKER) 93 mg/dL 70-105 (test aotx=799) CALCIUM (BEAKER) (test 9.0 mg/dL 8.4-10.2 xama=701) EGFR (BEAKER) (test 84 mL/min/1.73 sq m ESTIMATED GFR IS NOT devw=1843) ACCURATE CREATININE CLEARANCE IN PREDICTING GLOMERULAR FILTRATION RATE. ESTIMATED GFR IS NOT APPLICABLE FOR DIALYSIS PATIENTS. CBC (HEMOGRAM ONLY)2016-10-17 05:22:00 Test Item Value Reference Range Comments WHITE BLOOD CELL COUNT (BEAKER) (test docr=966) 6.9 K/ L 4.0-10.0 RED BLOOD CELL COUNT (BEAKER) (test qvwe=796) 3.63 M/ L 4.00-5.00 HEMOGLOBIN (BEAKER) (test pboq=445) 11.4 GM/DL 12.0-15.0 HEMATOCRIT (BEAKER) (test fjnp=975) 33.4 % 36.0-45.0 MEAN CORPUSCULAR VOLUME (BEAKER) (test whzs=149) 92.1 fL 82.0-99.0 MEAN CORPUSCULAR HEMOGLOBIN (BEAKER) (test 31.5 pg 27.0-33.0 ehaz=679) MEAN CORPUSCULAR HEMOGLOBIN CONC (BEAKER) (test 34.2 GM/DL 32.0-36.0 zrns=021) RED CELL DISTRIBUTION WIDTH (BEAKER) (test 12.7 % 10.3-14.2 mnoc=287) PLATELET COUNT (BEAKER) (test fqnv=097) 222 K/CU MM 150-430 MEAN PLATELET VOLUME (BEAKER) (test taig=539) 6.4 fL 6.5-10.5 NUCLEATED RED BLOOD CELLS (BEAKER) (test 0 /100 WBC 0-0 gyds=852) 0.00POCT-GLUCOSE [id number] 21:18:00 Test Item Value Reference Range Comments POC-GLUCOSE METER (BEAKER) 181 mg/dL 70-110 TESTED AT [address] (test edld=0298) [place] [id number] POCT-GLUCOSE [id number] 11:49:00 Test Item Value Reference Range Comments POC-GLUCOSE METER (BEAKER) 112 mg/dL 70-110 TESTED AT [address] (test prwo=0096) [place] [id number] BASIC METABOLIC [id number] 07:49:00 Test Item Value Reference Range Comments SODIUM (BEAKER) (test 138 meq/L 136-145 lgii=195) POTASSIUM (BEAKER) (test 4.1 meq/L 3.5-5.1 vfaf=210) CHLORIDE (BEAKER) (test 104 meq/L 98-107 zgmi=048) CO2 (BEAKER) (test 26 meq/L 22-29 kuws=289) BLOOD UREA NITROGEN 13 mg/dL 7-21 (BEAKER) (test aoqn=423) CREATININE (BEAKER) (test 0.74 mg/dL 0.57-1.25 bqik=234) GLUCOSE RANDOM (BEAKER) 94 mg/dL 70-105 (test vwzl=360) CALCIUM (BEAKER) (test 9.3 mg/dL 8.4-10.2 iqfu=259) EGFR (BEAKER) (test 79 mL/min/1.73 sq m ESTIMATED GFR IS NOT sfck=5464) ACCURATE CREATININE CLEARANCE IN PREDICTING GLOMERULAR FILTRATION RATE. ESTIMATED GFR IS NOT APPLICABLE FOR DIALYSIS PATIENTS. [id number] 07:47:00 Test Item Value Reference Range Comments PARTIAL THROMBOPLASTIN TIME (BEAKER) (test 32.9 seconds 22.5-36.0 qrgw=576) PROTHROMBIN TIME/[id number] 07:46:00 Test Item Value Reference Range Comments PROTIME (BEAKER) (test mzgd=601) 13.4 seconds 11.7-14.7 INR (BEAKER) (test vdsz=814) 1.0 <=5.9 RECOMMENDED COUMADIN/WARFARIN INR THERAPY RANGESSTANDARD DOSE: 2.0 - 3.0 Includes: PROPHYLAXIS forvenous thrombosis, systemic embolization; TREATMENT for venous thrombosis and/or pulmonary embolus.HIGH RISK: Target INR is 2.5-3.5 for patients with mechanical heart valves.CBC W/PLT COUNT & AUTO [id number] 07:32:00 Test Item Value Reference Range Comments WHITE BLOOD CELL COUNT (BEAKER) (test kojv=868) 6.1 K/ L 4.0-10.0 RED BLOOD CELL COUNT (BEAKER) (test uzvq=994) 4.22 M/ L 4.00-5.00 HEMOGLOBIN (BEAKER) (test ozxv=815) 12.6 GM/DL 12.0-15.0 HEMATOCRIT (BEAKER) (test feex=067) 37.8 % 36.0-45.0 MEAN CORPUSCULAR VOLUME (BEAKER) (test zuun=376) 89.6 fL 82.0-99.0 MEAN CORPUSCULAR HEMOGLOBIN (BEAKER) (test 29.9 pg 27.0-33.0 gloe=877) MEAN CORPUSCULAR HEMOGLOBIN CONC (BEAKER) (test 33.4 GM/DL 32.0-36.0 fdmi=246) RED CELL DISTRIBUTION WIDTH (BEAKER) (test 13.9 % 10.3-14.2 aetk=924) PLATELET COUNT (BEAKER) (test rfmn=266) 247 K/CU MM 150-430 MEAN PLATELET VOLUME (BEAKER) (test siax=731) 6.4 fL 6.5-10.5 NUCLEATED RED BLOOD CELLS (BEAKER) (test 0 /100 WBC 0-0 avnk=923) NEUTROPHILS RELATIVE PERCENT (BEAKER) (test 55 % elje=563) LYMPHOCYTES RELATIVE PERCENT (BEAKER) (test 33 % btxf=338) MONOCYTES RELATIVE PERCENT (BEAKER) (test 7 % lhoj=840) EOSINOPHILS RELATIVE PERCENT (BEAKER) (test 5 % ofwb=104) BASOPHILS RELATIVE PERCENT (BEAKER) (test 1 % lust=610) NEUTROPHILS ABSOLUTE COUNT (BEAKER) (test 3.35 K/ L 1.80-8.00 twwc=006) LYMPHOCYTES ABSOLUTE COUNT (BEAKER) (test 2.03 K/ L 1.48-4.50 lesc=352) MONOCYTES ABSOLUTE COUNT (BEAKER) (test 0.42 K/ L 0.00-1.30 cgxf=155) EOSINOPHILS ABSOLUTE COUNT (BEAKER) (test 0.29 K/ L 0.00-0.50 hcar=236) BASOPHILS ABSOLUTE COUNT (BEAKER) (test 0.04 K/ L 0.00-0.20 rcra=133) 0.00TISSUE [id number] 19:41:00 Test Item Value Reference Range Comments LAB AP CPT CODE (BEAKER) (test vztj=9277) [id number] 10:02:00 Test Item Value Reference Range Comments MAGNESIUM (BEAKER) (test klds=753) 2.0 mg/dL 1.6-2.6 COMPREHENSIVE METABOLIC [id number] 05:55:00 Test Item Value Reference Range Comments TOTAL PROTEIN (BEAKER) 6.0 gm/dL 6.0-8.3 (test ywks=556) ALBUMIN (BEAKER) (test 3.2 g/dL 3.5-5.0 tjer=5777) ALKALINE PHOSPHATASE 119 U/L 40-150 (BEAKER) (test brmm=237) BILIRUBIN TOTAL (BEAKER) 0.7 mg/dL 0.2-1.2 (test ytyi=330) SODIUM (BEAKER) (test 139 meq/L 136-145 pedq=075) POTASSIUM (BEAKER) (test 4.0 meq/L 3.5-5.1 jsxz=440) CHLORIDE (BEAKER) (test 105 meq/L 98-107 neul=010) CO2 (BEAKER) (test 24 meq/L 22-29 dvoe=376) BLOOD UREA NITROGEN 8 mg/dL 7-21 (BEAKER) (test zebv=691) CREATININE (BEAKER) (test 0.63 mg/dL 0.57-1.25 nndx=790) GLUCOSE RANDOM (BEAKER) 121 mg/dL 70-105 (test ihwy=035) CALCIUM (BEAKER) (test 9.2 mg/dL 8.4-10.2 mbtr=477) AST (SGOT) (BEAKER) (test 11 U/L 5-34 wtua=662) ALT (SGPT) (BEAKER) (test 10 U/L 6-55 wuvm=554) EGFR (BEAKER) (test 95 mL/min/1.73 sq m ESTIMATED GFR IS NOT aprv=8051) ACCURATE CREATININE CLEARANCE IN PREDICTING GLOMERULAR FILTRATION RATE. ESTIMATED GFR IS NOT APPLICABLE FOR DIALYSIS PATIENTS. HEPATIC FUNCTION [id number] 18:10:00 Test Item Value Reference Range Comments TOTAL PROTEIN (BEAKER) (test khtd=629) 6.0 gm/dL 6.0-8.3 ALBUMIN (BEAKER) (test erch=9298) 3.2 g/dL 3.5-5.0 BILIRUBIN TOTAL (BEAKER) (test vrmc=742) 0.6 mg/dL 0.2-1.2 BILIRUBIN DIRECT (BEAKER) (test xtsq=172) 0.3 mg/dL 0.1-0.5 ALKALINE PHOSPHATASE (BEAKER) (test vnxf=775) 114 U/L 40-150 AST (SGOT) (BEAKER) (test vpeu=467) 11 U/L 5-34 ALT (SGPT) (BEAKER) (test eeyp=697) 9 U/L 6-55 [id number] 18:10:00 Test Item Value Reference Range Comments MAGNESIUM (BEAKER) (test ylye=945) 1.5 mg/dL 1.6-2.6 [id number] 18:10:00 Test Item Value Reference Range Comments PHOSPHORUS (BEAKER) (test nqwg=688) 4.2 mg/dL 2.3-4.7 BASIC METABOLIC [id number] 13:52:00 Test Item Value Reference Range Comments SODIUM (BEAKER) (test 139 meq/L 136-145 hklj=607) POTASSIUM (BEAKER) (test 3.3 meq/L 3.5-5.1 ddno=921) CHLORIDE (BEAKER) (test 103 meq/L 98-107 zkua=737) CO2 (BEAKER) (test 26 meq/L 22-29 jajk=768) BLOOD UREA NITROGEN 11 mg/dL 7-21 (BEAKER) (test jyfg=064) CREATININE (BEAKER) (test 0.69 mg/dL 0.57-1.25 eqnk=952) GLUCOSE RANDOM (BEAKER) 94 mg/dL 70-105 (test nmtp=241) CALCIUM (BEAKER) (test 9.0 mg/dL 8.4-10.2 svdl=071) EGFR (BEAKER) (test 85 mL/min/1.73 sq m ESTIMATED GFR IS NOT yeuv=9212) ACCURATE CREATININE CLEARANCE IN PREDICTING GLOMERULAR FILTRATION RATE. ESTIMATED GFR IS NOT APPLICABLE FOR DIALYSIS PATIENTS. CBC W/PLT COUNT & AUTO [id number] 13:40:00 Test Item Value Reference Range Comments WHITE BLOOD CELL COUNT (BEAKER) (test wbeb=179) 6.5 K/ L 4.0-10.0 RED BLOOD CELL COUNT (BEAKER) (test ckyd=912) 3.54 M/ L 4.00-5.00 HEMOGLOBIN (BEAKER) (test ckup=437) 11.3 GM/DL 12.0-15.0 HEMATOCRIT (BEAKER) (test iuvn=100) 32.5 % 36.0-45.0 MEAN CORPUSCULAR VOLUME (BEAKER) (test jufu=893) 91.6 fL 82.0-99.0 MEAN CORPUSCULAR HEMOGLOBIN (BEAKER) (test 31.9 pg 27.0-33.0 niwu=384) MEAN CORPUSCULAR HEMOGLOBIN CONC (BEAKER) (test 34.9 GM/DL 32.0-36.0 wvst=161) RED CELL DISTRIBUTION WIDTH (BEAKER) (test 12.0 % 10.3-14.2 ebde=564) PLATELET COUNT (BEAKER) (test lqdf=550) 220 K/CU MM 150-430 MEAN PLATELET VOLUME (BEAKER) (test qlhs=752) 6.4 fL 6.5-10.5 NUCLEATED RED BLOOD CELLS (BEAKER) (test 0 /100 WBC 0-0 vuzg=821) NEUTROPHILS RELATIVE PERCENT (BEAKER) (test 69 % kigk=655) LYMPHOCYTES RELATIVE PERCENT (BEAKER) (test 19 % qkcw=029) MONOCYTES RELATIVE PERCENT (BEAKER) (test 7 % cpbu=855) EOSINOPHILS RELATIVE PERCENT (BEAKER) (test 3 % qonm=473) BASOPHILS RELATIVE PERCENT (BEAKER) (test 1 % dxjt=410) NEUTROPHILS ABSOLUTE COUNT (BEAKER) (test 4.51 K/ L 1.80-8.00 wfgb=903) LYMPHOCYTES ABSOLUTE COUNT (BEAKER) (test 1.26 K/ L 1.48-4.50 xcuv=661) MONOCYTES ABSOLUTE COUNT (BEAKER) (test 0.46 K/ L 0.00-1.30 qlpj=989) EOSINOPHILS ABSOLUTE COUNT (BEAKER) (test 0.23 K/ L 0.00-0.50 zqil=563) BASOPHILS ABSOLUTE COUNT (BEAKER) (test 0.04 K/ L 0.00-0.20 uscj=510) 0.00
--- OUTSIDE RECORDS SUMMARY | 2018-10-12 10:18 | XMS REPORT | Continuity of Care Document ---
:1950 Author Organization [facility] Care Team Providers Name Role Phone NOLOCAL, PRIMARY CARE DOC Primary Care Physician Unavailable Insurance Providers Payer Name Policy Number Subscriber Name Relationship MEDICARE [id number] PATY PRETTY SELF/SAME PATIENT [facility] [id number] PATY PRETTY SELF/SAME PATIENT Advance Directives Directive Response Recorded Date/Time Advance Directive? N 05/11/18 4:13pm Living Will? N 05/11/18 4:13pm Health Care Proxy? N 05/11/18 4:13pm Healthcare Power of Jet Mechanic? N 05/11/18 4:13pm Is the patient an Organ Donor? N 05/11/18 4:13pm Chief Complaint and Reason for Visit Reason for Visit AMS Problems No problem information available. Medications No medication information available. Social History No social history. Hospital Discharge Instructions No hospital discharge instructions. Plan of Care Discharge Date 05/11/18 Disposition HOME/SELF CARE Prescriptions See Medications Section Functional Status No functional status results. Allergies, Adverse Reactions, Alerts No allergy information available. Immunizations No Known History of Immunizations. Vital Signs No Known Vital Signs Results. Results Laboratory Results Test Name Result Units Flags Reference Collection Result Comments Date/Time Date/Time Urine Color YELLOW YELLOW 05/11/18 05/11/18 4:40pm 4:49pm Urine CLEAR CLEAR 05/11/18 05/11/18 Appearance 4:40pm 4:49pm Urine Glucose NEGATIVE mg/dL NEGATIVE 05/11/18 05/11/18 4:40pm 4:49pm Urine NEGATIVE NEGATIVE 05/11/18 05/11/18 Bilirubin 4:40pm 4:49pm Urine Ketones NEGATIVE NEGATIVE 05/11/18 05/11/18 4:40pm 4:49pm Urine Specific 1.010 1.002-1.03 05/11/18 05/11/18 [place] 0 4:40pm 4:49pm Urine Blood TRACE A NEGATIVE 05/11/18 05/11/18 4:40pm 4:49pm Urine pH 6.5 4.5-8.0 05/11/18 05/11/18 4:40pm 4:49pm Urine Protein NEGATIVE mg/dL NEGATIVE 05/11/18 05/11/18 4:40pm 4:49pm Urine 0.2 E.U./dL 0.2 05/11/18 05/11/18 Urobilinogen 4:40pm 4:49pm Urine Nitrite NEGATIVE NEGATIVE 05/11/18 05/11/18 4:40pm 4:49pm Urine SMALL A NEGATIVE 05/11/18 05/11/18 Leukocyte 4:40pm 4:49pm Esterase Urine YES NO 05/11/18 05/11/18 Microscopic 4:40pm 4:49pm Indicated Urine RBC NONE SEEN /hpf 0-2 05/11/18 05/11/18 4:40pm 4:59pm Urine WBC 0-2 /hpf 0-2 05/11/18 05/11/18 4:40pm 4:59pm Urine 3-5 /hpf A 0-2 05/11/18 05/11/18 Epithelial 4:40pm 4:59pm Cells Urine Bacteria NEGATIVE /hpf NEG 05/11/18 05/11/18 4:40pm 4:59pm White Blood 6.8 K/uL 4.8-10.8 05/11/18 05/11/18 Count 3:40pm 4:21pm Red Blood 4.26 M/uL 3.70-5.40 05/11/18 05/11/18 Count 3:40pm 4:21pm Hemoglobin 13.4 g/dL 12.0-16.0 05/11/18 05/11/18 3:40pm 4:21pm Hematocrit 39.0 % 37.0-47.0 05/11/18 05/11/18 3:40pm 4:21pm Mean 91.6 fl 80.0-100.0 05/11/18 05/11/18 Corpuscular 3:40pm 4:21pm Volume Mean 31.3 pg H 27.0-31.0 05/11/18 05/11/18 Corpuscular 3:40pm 4:21pm Hemoglobin Mean 34.2 g/dL 32.0-36.0 05/11/18 05/11/18 Corpuscular 3:40pm 4:21pm Hgb Concent Diff Red Cell 13.5 % 11.5-14.5 05/11/18 05/11/18 Distribution 3:40pm 4:21pm Width Platelet Count 222 K/uL 130-400 05/11/18 05/11/18 3:40pm 4:21pm Mean Platelet 7.5 fl 05/11/18 05/11/18 Volume 3:40pm 4:21pm Granulocytes 75.7 % H 50.0-75.0 05/11/18 05/11/18 (%) 3:40pm 4:21pm Lymphocytes % 18.8 % L 20.0-40.0 05/11/18 05/11/18 3:40pm 4:21pm Monocytes % 4.5 % 0.0-15.0 05/11/18 05/11/18 3:40pm 4:21pm Eosinophils % 0.8 % 0.0-10.0 05/11/18 05/11/18 3:40pm 4:21pm Basophils % 0.2 % 0.0-2.0 05/11/18 05/11/18 3:40pm 4:21pm Granulocytes # 5.2 K/uL 1.8-6.4 05/11/18 05/11/18 3:40pm 4:21pm Lymphocytes # 1.3 K/uL 1.2-3.6 05/11/18 05/11/18 3:40pm 4:21pm Monocytes # 0.3 K/uL 0.3-0.9 05/11/18 05/11/18 3:40pm 4:21pm Eosinophils # 0.1 K/ul 0.0-0.5 05/11/18 05/11/18 3:40pm 4:21pm Basophils # 0.0 K/uL 0.0-0.2 05/11/18 05/11/18 3:40pm 4:21pm Manual NO 05/11/18 05/11/18 Differential 3:40pm 4:21pm Prothrombin 11.7 SECONDS 10.0-12.9 05/11/18 05/11/18 Time 3:40pm 4:21pm INR 1.0 0.91-1.15 05/11/18 05/11/18 International 3:40pm 4:21pm THE INR IS TO BE USED ONLY FOR MONITORING ORAL ANTICOAGULANT Normalized THERAPY. Ratio INDICATION INR VALUE 1. Prophylaxis of venous thrombosis 2.0-3.0 (high-risk surgery) Treatment of venous thrombosis Treatment of PE Prevention of systemic embolism Tissue heart valves AMI (to prevent systemic embolism) Valvular heart disease Atrial fibrillation Bileaflet mechanical valve in aortic position 2. Mechanical prosthetic heart valves (high risk) 2.5-3.5 Thrombosis and Antiphospholipid syndrome Prevention of recurrent IN Sixth ACCP Consensus Conference on Antithrombotic Therapy, Chest 2001; 119:Supplement 8-21. Sodium Level 136 mmol/L 135-144 05/11/18 05/11/18 3:40pm 4:17pm Potassium 3.6 mmol/L 3.5-5.1 05/11/18 05/11/18 Level 3:40pm 4:17pm Chloride Level 103 mmol/L 101-111 05/11/18 05/11/18 3:40pm 4:17pm Carbon Dioxide 24 mmol/L 22-32 05/11/18 05/11/18 Level 3:40pm 4:17pm Anion Gap 12.6 mmol/L 10-20 05/11/18 05/11/18 3:40pm 4:17pm Glucose Level 97 mg/dL 65-99 05/11/18 05/11/18 3:40pm 4:17pm Prediabetes 100 to 125 mg/dl Diabetes 126 mg/dl or higher Prediabetes refers to individuals with plasma glucose levels intermediate between those considered normal and those considered diabetic and is also referred to as impaired glucose tolerance (IGT) or impaired fasting glucose (IFG). Blood Urea 15 mg/dL 8-26 05/11/18 05/11/18 Nitrogen 3:40pm 4:24pm Creatinine 0.7 mg/dL 0.44-1.00 05/11/18 05/11/18 3:40pm 4:24pm EGFR Note 90.1 63.8-143.2 05/11/18 05/11/18 eGFR (Estimated Glomerular Filtration Rate) 3:40pm 4:24pm eGFR calculation value obtained using the [facility] Quadratic (MCQ) equation. The reportable reference range is recommended to be greater than 60 ml/min/1.73m. This is an estimation of the patient's GFR and clinical correlation is recommended. This eGFR calculation does not account for race. This result may differ from other equations available. Calcium Level 8.9 mg/dL 8.9-10.3 05/11/18 05/11/18 3:40pm 4:17pm Albumin 4.2 g/dL 3.5-5.0 05/11/18 05/11/18 3:40pm 4:24pm Total 0.9 mg/dL 0.3-1.2 05/11/18 05/11/18 Bilirubin 3:40pm 4:24pm Alkaline 80 IU/L 32-91 05/11/18 05/11/18 Phosphatase 3:40pm 4:24pm Total Protein 6.9 g/dL 6.5-8.1 05/11/18 05/11/18 3:40pm 4:24pm Alanine 17 IU/L 7-55 05/11/18 05/11/18 Aminotransfera 3:40pm 4:24pm se (ALT/SGPT) Aspartate 19 IU/L 15-41 05/11/18 05/11/18 Amino Transf 3:40pm 4:24pm (AST/SGOT) Globulin 2.7 g/dL 2.3-3.5 05/11/18 05/11/18 3:40pm 4:24pm Albumin/Globul 1.6 1.2-2.2 05/11/18 05/11/18 in Ratio 3:40pm 4:24pm Creatine 52 IU/L 38-234 05/11/18 05/11/18 Kinase 3:40pm 4:24pm Creatine 1.18 ng/ML 0.6-6.3 05/11/18 05/11/18 Kinase MB 3:40pm 4:35pm Troponin I < 0.01 ng/mL 0.00-0.03 05/11/18 05/11/18 3:40pm 4:35pm Troponin I-Interpretation Reference : <0.03 ng/mL NEGATIVE 0.04 - 0.49 ng/mL EQUIVOCAL =OR > 0.5 ng/mL CONSISTENT WITH ACUTE MYOCARDIAL INJURY 98% of confirmed AMI patients will have at least one value in a set or serial specimens >0.50 ng/ml. 99% of normals are between 0.0 - 0.10 ng/ml. Serial samples on a patient that are all <0.10 ng/ml effectively rules out AMI. Persistently increased troponin I values that are above the upper limit of normal but below the threshold for AMI indicate mycardial injury but not necessarily an ischemic mechanism of injury. Troponin Important Points 1. Troponin is specific for myocardial injury but not for AMI. Elevated troponin levels above the upper limit of normal but below the AMI cutoff may be present in cardiac injury other then AMI and represent some degree of risk. 2. Elevated troponin levels inconsistent with patient history or clinical condition should be considered a sign to investigate for other cardiac conditions. 3. Serial sampling is critical for accurate diagnosis. Myoglobin 15 ug/mL 14.3-65.8 05/11/18 05/11/18 3:40pm 4:35pm B-Type 293 pg/mL H 0-100 05/11/18 05/11/18 Natriuretic 3:40pm 4:31pm Peptide Procedures Procedure Status Date Provider(s) CBCA W/PLT & AUTO DIFFERENTIAL Completed 05/11/18 MOLLY BILLINGSLEY COMPREHENSIVE METABOLIC PANEL Completed 05/11/18 MOLLY BILLINGSLEY ROUTINE URINALYSIS Completed 05/11/18 MOLLY BILLINGSLEY PROTIME Completed 05/11/18 MOLLY BILLINGSLEY CARDIAC MARKERS PANEL (ER) Completed 05/11/18 MOLLY BILLINGSLEY BNP RAPID Completed 05/11/[address] BRAIN W/O CONTRAST Completed 05/11/18 MOLLY BILLINGSLEY CHEST 1 VIEW (AP) Completed 05/11/18 MOLLY BILLINGSLEY Encounters Encounter Location Arrival/Admit Date Discharge/Depart Date Attending Provider Departed [place] 05/11/18 3:40pm 05/11/18 7:42pm Melvin Martin [facility] Gen TEIXEIRA [facility]
[2018-10-12] MEDS ORDERED: ONDANSETRON 4 MG/2 ML VIAL ONE (10:39)
[2018-10-12 10:41] LABS: Absolute Lymphocytes (CBC) 0.9 K/uL (0.7-4.9); Absolute Monocytes 0.3 K/uL (0.1-1.3); Absolute Neutrophil 3.6 K/uL (1.8-8.0); Basophils % 0.3 % (0-1.3); Eosinophils % 2.1 % (0-4.4); Hematocrit 36.5 % (36.0-45.0); Lymphocytes % 19.4 % (15.3-44.8); MPV 7.5 fL (7.6-11.3); Monocytes % 5.3 % (3.3-12.3); RBC Red Blood Cell Count 3.96 M/uL (3.86-4.86)
[2018-10-12 10:42] LABS: Protime INR 1.07
--- NOTE | 2018-10-12 10:45 | RAD REPORT ---
EXAM DESCRIPTION: CT - Ct Stroke Brain Wo Cont - 10/12/2018 10:35 am CLINICAL HISTORY: Headache COMPARISON: 2016 TECHNIQUE: Computed axial tomography of the head was obtained. IV contrast was not requested. All CT scans are performed using dose optimization technique as appropriate and may include automated exposure control or mA/KV adjustment according to patient size. FINDINGS: An intracranial bleed is not seen . The ventricles are small but without change from the prior exam. No extra-axial fluid collection is noted. Hyperostosis frontalis interna seen Fluid is present the right maxillary sinus IMPRESSION: No acute intracranial abnormality is seen. If patient's symptoms persist MRI of the bra in would be recommended. Fluid within the right maxillary sinus probably indicates acute sinusitis Exam discussed with Dr. Harkins in the Emergency Room at 10:36 a.m. October 12, 2018
[2018-10-12 10:50] LABS: BUN Blood Urea Nitrogen 12 mg/dL (7-18); Bicarbonate 31 mmol/L (21-32); Glucose Level 97 mg/dL (74-106); Potassium 4.1 mmol/L (3.5-5.1); Sodium Level 143 mmol/L (136-145)
[2018-10-12] MEDS ORDERED: HYDRALAZINE HCL 20 MG/ML VIAL ONE ×2 (10:57→14:41)
--- NOTE | 2018-10-12 11:21 | RAD REPORT ---
EXAM DESCRIPTION: [place] Single View10/12/2018 11:08 am CLINICAL HISTORY: Chest pain COMPARISON: February 2018 FINDINGS: The lungs appear clear of acute infiltrate. The heart is normal size. A small hiatal mark ia is present IMPRESSION: No acute abnormalities displayed
[2018-10-12] MEDS ORDERED: KETOROLAC 30 MG/ML INJ ONE (11:37)
[2018-10-12] MEDS ORDERED: METOCLOPRAMIDE 10 MG/2mL INJ ONE (11:37)
[2018-10-12] MEDS ORDERED: DIPHENHYDRAMINE 50 MG/ML VIAL ONE (11:37)
--- NOTE | 2018-10-12 13:03 | EDPHYS ---
Physician Documentation [facility] Name: Barbara Mcknight Age: 67 yrs Sex: Female : 1950 Arrival Date: 10/12/2018 Time: 10:13 Bed 2 Private MD: Simon Arvizu ED Physician Andrea Harkins HPI: 10/12 13:35 This 67 yrs old Female presents to ER via Wheelchair with complaints of gs Nausea, Dizziness, Headache, SHARP PAINS. 13:35 The patient complains of pain to the forehead. The patient describes the headache as gs throbbing. Onset: The symptoms/episode began/occurred gradually. Associated signs and symptoms: Pertinent positives: started with chest pain and arm pain on left, radiation to neck and jaw, then headache came gradually was severe. bp very high.. Severity of symptoms: At its worst the pain was severe, in the emergency department the pain is unchanged. The patient has experienced similar episodes in the past, a few times. The patient has been recently seen by a physician: ed. Historical: - Allergies: 12:39 No Known Allergies; ch - Home Meds: 12:39 Lisinopril Oral [Active]; Tramadol Oral [Active]; ch - PMHx: 10:31 chronic kidney disease; Hypertension; Migraines; Osteoporosis; restless leg syndrome; ss 12:39 back fusion; ch - PSHx: 12:39 Appendectomy; Tonsillectomy; Cholecystectomy; Hysterectomy; Gastric Bypass; ch 16:39 back; ch - Immunization history:: Adult Immunizations up to date. - Social history:: Smoking status: Patient/guardian denies using tobacco, Patient/guardian denies using alcohol, street drugs. - Ebola Screening: : Patient negative for fever greater than or equal to 101.5 degrees Fahrenheit, and additional compatible Ebola Virus Disease symptoms Patient denies exposure to infectious person Patient denies travel to an Ebola-affected area in the 21 days before illness onset No symptoms or risks identified at this time. ROS: 13:35 All other systems are negative. gs Exam: 13:35 Head/Face: Normocephalic, atraumatic. Eyes: Pupils equal round and reactive to light, gs extra-ocular motions intact. Lids and lashes normal. Conjunctiva and sclera are non-icteric and not injected. Cornea within normal limits. Periorbital areas with no swelling, redness, or edema. ENT: Nares patent. No nasal discharge, no septal abnormalities noted. Tympanic membranes are normal and external auditory canals are clear. Oropharynx with no redness, swelling, or masses, exudates, or evidence of obstruction, uvula midline. Mucous membranes moist. Neck: Trachea midline, no thyromegaly or masses palpated, and no cervical lymphadenopathy. Supple, full range of motion without nuchal rigidity, or vertebral point tenderness. No Meningismus. Chest/axilla: Normal chest wall appearance and motion. Nontender with no deformity. No lesions are appreciated. Cardiovascular: Regular rate and rhythm with a normal S1 and S2. No gallops, murmurs, or rubs. Normal PMI, no JVD. No pulse deficits. Respiratory: Lungs have equal breath sounds bilaterally, clear to auscultation and percussion. No rales, rhonchi or wheezes noted. No increased work of breathing, no retractions or nasal flaring. Abdomen/GI: Soft, non-tender, with normal bowel sounds. No distension or tympany. No guarding or rebound. No evidence of tenderness throughout. Back: No spinal tenderness. No costovertebral tenderness. Full range of motion. Skin: Warm, dry with normal turgor. Normal color with no rashes, no lesions, and no evidence of cellulitis. MS/ Extremity: Pulses equal, no cyanosis. Neurovascular intact. Full, normal range of motion. Neuro: Awake and alert, GCS 15, oriented to person, place, time, and situation. Cranial nerves II-XII grossly intact. Motor strength 5/5 in all extremities. Sensory grossly intact. Cerebellar exam normal. Normal gait. 13:35 Constitutional: The patient appears alert, awake. 14:13 ECG was reviewed by the Attending Physician. Vital Signs: 10:31 BP 215 / 81; Pulse 54; Resp 21; Pulse Ox 99% on R/A; Weight 68.49 kg; Height 5 ft. 5 ss in. (165.10 cm); Pain 8/10; 10:55 BP 154 / 55; Pulse 54; Resp 10; Temp 97.8; Pulse Ox 96% on R/A; Pain 8/10; ch 11:07 Pulse 46; Temp 98.1; Pulse Ox 96% on R/A; ch 11:52 BP 174 / 65; Pulse 56; Resp 16; Pulse Ox 96% on R/A; Pain 7/10; ch 13:25 BP 132 / 49; Pulse 52; Resp 16; Pulse Ox 96% on R/A; Pain 0/10; ch 13:35 BP 154 / 62; Pulse 53; Resp 16; Temp 98.8; Pulse Ox 98% on R/A; Pain 4/10; ch 14:17 BP 161 / 59; Pulse 48; Resp 12; Pulse Ox 96% on R/A; Pain 3/10; ch 16:03 BP 146 / 85; Pulse 62; Resp 14; Pulse Ox 96% on R/A; Pain 7/10; ch 10:31 Body Mass Index 25.13 (68.49 kg, 165.10 cm) ss NIH Stroke Scale Scores: 13:35 NIHSS Score: 0 gs MDM: 10:31 Patient medically screened. gs 14:12 Differential diagnosis: cerebral vascular accident, hypertensive headache, subarachnoid gs bleed, tension headache, vasomotor headache. Data reviewed: vital signs, nurses notes, lab test result(s), EKG, radiologic studies. Counseling: I had a detailed discussion with the patient and/or guardian regarding: the historical points, exam findings, and any diagnostic results supporting the discharge/admit diagnosis, the need for further work-up and treatment in the hospital. Response to treatment: the patient's symptoms have markedly improved after treatment, the patient's symptoms have resolved after treatment, the patient's condition has returned to base line. 10/12 10:30 Order name: Basic Metabolic Panel; Complete Time: 11:23 10/12 10:30 Order name: CBC with Diff; Complete Time: 11: 10/12 10:30 Order name: Protime (+inr); Complete Time: 11:23 10/12 10:30 Order name: Ptt, Activated; Complete Time: 11:23 10/12 10:32 Order name: Troponin (emerg Dept Use Only); Complete Time: 11:23 10/12 11:01 Order name: Glucose, Ancillary Testing EDMS 10/12 10:30 Order name: CT Stroke Brain w/o Contrast; Complete Time: 11:23 10/12 10:30 Order name: Stroke CXR 1 View; Complete Time: 11:23 10/12 12:39 Order name: Urine Dipstick--Ancillary (enter results) 10/12 14:40 Order name: Troponin I [facility] 10/12 14:40 Order name: Troponin I [facility] 10/12 14:40 Order name: Troponin I [facility] 10/12 10:30 Order name: EKG; Complete Time: 10:30 10/12 10:30 Order name: Accucheck; Complete Time: 11:00 10/12 10:30 Order name: Cardiac monitoring; Complete Time: 10:35 10/12 10:30 Order name: EKG - Nurse/Tech; Complete Time: 11:00 10/12 10:30 Order name: IV Saline Lock; Complete Time: 11:00 10/12 10:30 Order name: Labs collected and sent; Complete Time: 10:35 10/12 14:40 Order name: CONS Physician Consult [facility] 10/12 14:40 Order name: Consistent Carb (ADA) [address] EDMN 10/12 14:40 Order name: EKG Electrocardiogram [facility] 10/12 14:40 Order name: EKG Electrocardiogram [facility] 10/12 16:05 Order name: Diet Regular; Complete Time: 16:05 10/12 10:30 Order name: NPO; Complete Time: 13:27 10/12 10:30 Order name: O2 Per Protocol; Complete Time: 10:35 10/12 10:30 Order name: O2 Sat Monitoring; Complete Time: 10:35 10/12 10:30 Order name: Stroke Swallow Screen; Complete Time: 13:27 ch EC:13 Rate is 46 beats/min. WV interval is normal. QRS interval is normal. QT interval is gs normal. T waves are Normal. No ST changes noted. Clinical impression: Sinus bradycardia. Interpreted by me. Administered Medications: 10:41 Drug: hydrALAZINE 10 mg Route: IV; Rate: calculated rate; Site: right antecubital; ch 10:46 Follow up: IV Status: Completed infusion ch 11:35 Drug: Benadryl 12.5 mg Route: IVP; Infused Over: 5 mins; Site: left hand; ch 12:42 Follow up: Response: No adverse reaction; Marked relief of symptoms ch 11:40 Drug: TORadol 15 mg Route: IVP; Site: left hand; ch 12:42 Follow up: Response: No adverse reaction; Marked relief of symptoms ch 11:42 Drug: Reglan 5 mg Route: IVP; Infused Over: 2 mins; Site: left hand; 12:43 Follow up: Response: No adverse reaction; Marked relief of symptoms 14:00 Drug: Cowdrey 5 mg-325 mg 1 tabs Route: PO; 14:30 Follow up: Response: No adverse reaction ch 14:17 Drug: hydrALAZINE 10 mg Route: IV; Rate: calculated rate; Site: left hand; 14:27 Follow up: IV Status: Completed infusion ch Disposition: 10/12/18 13:02 Hospitalization ordered by Simon Arvizu for Observation. Preliminary diagnosis is Pain in throat and chest. - Bed requested for Telemetry/MedSurg (observation). - Status is Observation. ch - Condition is Stable. - Problem is new. - Symptoms have improved. UTI on Admission? No Critical care time excluding procedures: 14:12 Critical care time: Bedside Care: 10 minutes, Consultation: 10 minutes, Family gs Intervention: 10 minutes. Total time: 30 minutes NIH Stroke Scale - NIH Stroke Score Date: 10/12/2018 Time: 13:35 Total Score = 0 1a. Level of Consciousness (LOC) - 0(Alert) 1b. Level of Consciousness (LOC) (Year \T\ Age) - 0(Both) 1c. LOC Commands (Open \T\ Closes Eyes/Remote Computer Terminal Operator) - 0(Both) 2. Best Gaze (Lateral Gaze Paresis) - 0(Normal) 3. Visual Field Loss - 0(No visual loss) 4. Facial Palsy - 0(Normal) 5a. Left Arm: Motor (10-second hold) - 0(No drift) 5b. Right Arm: Motor (10-second hold) - 0(No drift) 6a. Left Leg: Motor (5-second hold - always test supine) - 0(No drift) 6b. Right Leg: Motor (5-second hold - always test supine) - 0(No drift) 7. Limb Ataxia (finger/nose \T\ heel/ruvalcaba - test with eyes open) - 0(Absent) 8. Sensory Loss (pinprick arms/legs/face) - 0(Normal) 9. Best Language: Aphasia (description/naming/reading) - 0(No aphasia) 10. Dysarthria (speech clarity - read or repeat words) - 0(Normal) 11. Extinction and Inattention (visual/tactile/auditory/spatial/personal) - 0(No abnormality) Initials: gs Signatures: Dispatcher [employer] EDMN Jenifer Lake, RN RN Katelyn Hancock, RN RN Florecita Pool, RN RN Andrea Bynum MD MD gs Corrections: (The following items were deleted from the chart) 10:35 10:31 CT-STROKE BRAIN W/O CONTRAST+[id number].BRZ ordered. EDMN EDMN 16:18 13:02 Hospitalization Ordered by Simon Arvizu MD for Observation. Preliminary dw diagnosis is Pain in throat and chest. Bed requested for Telemetry/MedSurg (observation). Status is Observation. Condition is Stable. Problem is new. Symptoms have improved. UTI on Admission? No. gs 17:02 16:18 10/12/2018 13:02 Hospitalization Ordered by Simon Arvizu MD for Observation. Preliminary diagnosis is Pain in throat and chest. Bed requested for Telemetry/MedSurg (observation). Status is Observation. Condition is Stable. Problem is new. Symptoms have improved. UTI on Admission? No. dw
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
--- NOTE | 2018-10-12 13:42 | EKG ---
Test Date: 2018-10-12 Test Time: 10:47:24 Ornamenter: BONG MEASUREMENT RESULTS: Intervals: Rate: 46 [place]: 140 QRSD: 96 QT: 460 QTc: 402 [place]: P: 44 [place]: 140 QRS: 28 T: 26 INTERPRETIVE STATEMENTS: Marked sinus bradycardia Abnormal ECG Compared to ECG 03/03/2018 07:19:07 No significant changes Electronically Signed On 10-12-18 13:37:54 MAINT MECHANIC by Tyshawn Melvin
[2018-10-12] MEDS ORDERED: ACETAMINOPHEN 500 MG TAB PO PRN (14:38)
[2018-10-12 14:45] LABS: Urine Blood NEGATIVE (NEG); Urine Glucose NEGATIVE (NEG); Urine Protein NEGATIVE (NEG); Urine Specific Gravity 1.015 (1.005-1.030); Urine pH 5.5 (5.0-7.0)
[2018-10-12] MEDS ORDERED: HYDROCODONE/APAP 5/325 MG TAB ONE (16:21)
[2018-10-12 17:25] VITALS: BMI 28.3
--- NOTE | 2018-10-12 18:45 | CON ---
History Of Present Illness: Mrs. Mcknight came to the hospital because of left arm pain. It radiates up to her jaw on the left side of her face. Six months ago, she was hospitalized for a similar thin g, and according to her , "nothing was done." In February of 2018, she was hospitalized, and the consideration was that she could have been having angina, so she underwent a nuclear stress test and echo, both of which were normal. She has never had myocardial infarction or stroke. She has a histo ry of gastric bypass surgery, appendectomy, tonsillectomy, cholecystectomy, hysterectomy. She has re stless legs syndrome, hypertension, migraines, osteoporosis, history of spinal fusions lumbar. Medications: Home medications are lisinopril and tramadol. Social History: She uses no tobacco. Physical Examination: General: She is alert, oriented, pleasant, not in distress, mildly obese. Vital Signs: Blood pressure 154/55, pulse 54. Lungs: Clear. Heart: Within normal limits. Abdomen: Soft. Extremities: No edema. Distal pulses palpable. Diagnostic Studies: Her electrocardiogram shows sinus bradycardia, no other changes, heart rate 46. Recommendations: We do a pharmacologic nuclear stress test and echo tomorrow. Her enzymes are leticia l, EKG unrevealing, so we need to do a noninvasive workup first for possible CAD. I think this is mo re likely to be musculoskeletal, perhaps cervical nerve causing the symptoms the way she describes it . Thank you very much for your kind referral of Mrs. Mcknight. I will follow her with you. GADIEL Voice ID: [id number] Report ID: [id number]
[2018-10-12] MEDS ORDERED: TEMAZEPAM 15 MG CAP PO PRN (21:02)
[2018-10-12] MEDS: HYDROCODONE/APAP 5/325 MG TAB PO PRN (21:18)
[2018-10-12] MEDS ORDERED: ONDANSETRON 4 MG/2 ML VIAL IV PRN (22:26)
[2018-10-12] MEDS ORDERED: MORPHINE 2 MG/ML SYR IV PRN (22:27)
[2018-10-12 23:57] LABS: Urine Appearance CLOUDY; Urine Blood NEGATIVE (NEG); Urine Color DK YELLOW; Urine Glucose NEGATIVE (NEG); Urine Protein NEGATIVE (NEG); Urine Specific Gravity 1.025 (1.005-1.030); Urine pH 5.5 (5.0-7.0)
[2018-10-13 00:06] LABS: Urine Bilirubin NEGATIVE (NEG); Urine Microscopic Reflex ORDER UMIC
[2018-10-13 00:39] LABS: Urine Bacteria LOADED /HPF (<20); Urine RBC NONE SEEN /HPF (NONE SEEN)
[2018-10-13 00:40] LABS: Urine Culture Reflex Order REFLEXED
[2018-10-13 04:56] LABS: Absolute Lymphocytes (CBC) 1.9 K/uL (0.7-4.9); Absolute Monocytes 0.4 K/uL (0.1-1.3); Absolute Neutrophil 2.8 K/uL (1.8-8.0); Basophils % 0.2 % (0-1.3); Eosinophils % 1.9 % (0-4.4); Hematocrit 33.1 % (36.0-45.0); Lymphocytes % 36.6 % (15.3-44.8); MPV 7.9 fL (7.6-11.3); Monocytes % 7.2 % (3.3-12.3); RBC Red Blood Cell Count 3.56 M/uL (3.86-4.86)
[2018-10-13 05:13] LABS: Potassium 4.4 mmol/L (3.5-5.1)
[2018-10-13] MEDS ORDERED: REGADENOSON 0.4 MG/5 ML SYR IV ONE (08:18)
[2018-10-13] MEDS: HOME MED 1 EA UNK SQ SCH (09:00)
[2018-10-13] MEDS: ASPIRIN EC 81 MG TAB PO SCH (09:47)
[2018-10-13] MEDS: ENOXAPARIN 30 MG/0.3 ML SQ SCH (09:48)
--- NOTE | 2018-10-13 10:31 | EKG ---
Test Date: 2018-10-12 Test Time: 22:18:02 Auditor Appraiser: RT-O MEASUREMENT RESULTS: Intervals: Rate: 57 [place]: 134 QRSD: 94 QT: 444 QTc: 432 [place]: P: 49 [place]: 134 QRS: 38 T: 26 INTERPRETIVE STATEMENTS: Sinus bradycardia Possible Left atrial enlargement Borderline ECG Compared to ECG 10/12/2018 10:47:24 No significant changes Electronically Signed On 10-13-18 10:29:19 TIPPLE BOSS by Bob Xavier
--- NOTE | 2018-10-13 12:55 | PN ---
Subjective: The patient is a 67-year-old patient of Dr. Arvizu admitted for chest pain, was seen by Dr. Melvin yesterday. An echocardiogram and a Lexiscan were ordered. Echocardiogram was read by me today, it is normal. Lexiscan is pending. We will see what that shows prior to making final decisi ons. STEFANI/GINA Voice ID: [id number] Report ID: [id number]
--- NOTE | 2018-10-13 13:07 | RAD REPORT ---
EXAM DESCRIPTION: NM - Rest Stress Cardiac Imaging - 10/13/2018 1:00 pm CLINICAL HISTORY: Chest pain. COMPARISON: 2017 TECHNIQUE: The patient was administered approximately 10mCi of Tc 99m Sestamibi prior to resting SPE CT imaging of the heart. The patient was then administered approximately 30 mCi of Tc 99m Sestamibi f ollowing exercise or pharmacologic stress. Multiplanar SPECT images were reviewed. FINDINGS: There is uniformity of radiotracer uptake involving the entire left ventricular myocardiu m on rest and stress images. The left ventricular ejection fraction equals 71% IMPRESSION: Negative for a myocardial perfusion defect
[2018-10-13] MEDS: CIPROFLOXACIN HCL 500 MG TAB PO SCH (20:13)
[2018-10-13] MEDS: HYDROCODONE/APAP 5/325 MG TAB PO PRN (20:14)
--- NOTE | 2018-10-13 23:07 | PN ---
Date of Progress Note: 10/13/2018 The patient has generally improved since the admission with a rather complicated story with the prese nting symptoms somewhat suggesting cardiac and then a couple of episodes of syncope and then had a TI A, a stroke protocol called. Vital signs are stable. Her headache is markedly decreased. The pain in her arm and chest is also decreased. Stress test was negative. I feel of the MRI of brain and ce rvical spine for TIA, syncope and cervical neuralgia are within normal limits. The patient is going to be discharged and followed up with Neurology with a tentative diagnosis of syncope vasovagal, cerv ical neuralgia, possible disk disease. HR/MODL Voice ID: [id number] Report ID: [id number]
--- NOTE | 2018-10-14 08:41 | ECHO ---
HEIGHT: 5 ft 1 in WEIGHT: 150 lb 0 oz DATE OF STUDY: 10/13/[address]: Bob Xavier MD 2-DIMENSIONAL: YES M.MODE: YES DOPPLER: YES COLOR FLOW: YES TDS: NO PORTABLE: NO DEFINITY: NO BUBBLE STUDY: NO DIAGNOSIS: CHEST PAIN CARDIAC HISTORY: CATHERIZATION: NO SURGERY: NO PROSTHETIC VALVE: NO PACEMAKER: NO MEASUREMENTS (cm) DIASTOLIC (NORMALS) SYSTOLIC (NORMALS) IVSd 1.3 (0.6-1.2) LA Diam 4.4 (1.9-4.0) LVEF 64% LVIDd 3.8 (3.5-5.7) LVIDs 2.5 (2.0-3.5) %FS 34% LVPWd 1.2 (0.6-1.2) Ao Diam 2.8 (2.0-3.7) 2 DIMENSIONAL ASSESSMENT: RIGHT ATRIUM: NORMAL LEFT ATRIUM: DILATED RIGHT VENTRICLE: NORMAL LEFT VENTRICLE: NORMAL TRICUSPID VALVE: NORMAL MITRAL VALVE: NORMAL PULMONIC VALVE: NORMAL AORTIC VALVE: NORMAL PERICARDIAL EFFUSION: NONE AORTIC ROOT: NORMAL LEFT VENTRICULAR WALL MOTION: NORMAL. DOPPLER/COLOR FLOW: MILD TRICUSPID REGURGITATION. COMMENTS: NORMAL LEFT VENTRICULAR SIZE AND FUNCTION. NO WALL MOTION ABNORMALITY. LEFT ATRIAL ENLARGEMENT. MILD TRICUSPID REGURGITATION- NORMAL RIGHT VENTRICULAR SYSTOLIC PRESSURE. TECHNOLOGIST: TAYLA BRIDGES
[2018-10-14] MEDS: HOME MED 1 EA UNK SQ SCH (09:00)
--- NOTE | 2018-10-14 09:31 | TREADPHA ---
DX: CHEST PAIN Date of Study: 10/13/2018 Ht: 5 1 Wt: 150 lb 0 oz Consulting Physician: ROBERTO MEDICATIONS: TYLENOL, ASPIRIN, LOVENOX, NORCO, RESTORIL HISTORY: 67 YEAR OLD FEMALE WITH COMPLAINTS OF CHEST PAIN. HISTORY OF KIDNEY DISEASE, TYPE II DIABETES, RLS, MIGRAINES, HYPERTENSION, OSTEOPOROSIS, GASTRIC BYPASS, UMBILICAL HERNIA REPAIR, NON SMOKER, NON DRINKER. PHYSICIAL EXAMINATION: RESTING B.P.: 176/74 RESTING H.R.: 44 RESTING EKG: SINUS BRADYCARDIA PROTOCOL: LEXISCAN EXERCISE TIME: 3:30 B.P. AT PEAK STRESS: 167/63 IMPRESSION: LEXISCAN INJECTED, FOLLOWED BY CARDIOLITE PER PROTOCOL. SEE NUCLEAR MEDICINE REPORT. NO SUPRAVENTRICULAR TACHYCARDIA. NO VENTRICULAR TACHYCARDIA. NO PREMATURE ATRIAL COMPLEXES. NO PREMATURE VENTRICULAR COMPLEXES. PATIENT REPORT 8/10 CHEST TIGHTNESS DURING PROCEDURE, 4/10 CHEST TIGHTNESS AFTER A FEW MINUTES AND 3/10 CHEST TIGHTNESS IN RECOVERY.
[2018-10-14 10:27] LABS: T3 Free 2.22 pg/mL (2.18-3.98); Thyroid Stimulating Hormone 2.31 uIU/mL (0.360-3.740)
[2018-10-14] MEDS: CIPROFLOXACIN HCL 500 MG TAB PO SCH (10:35)
[2018-10-14] MEDS: ASPIRIN EC 81 MG TAB PO SCH (10:36)
[2018-10-14] MEDS: ENOXAPARIN 30 MG/0.3 ML SQ SCH (10:36)
--- NOTE | 2018-10-14 12:34 | EKG ---
Test Date: 2018-10-14 Test Time: 08:23:01 Sharepoint Developer: BONG MEASUREMENT RESULTS: Intervals: Rate: 41 [place]: 136 QRSD: 96 QT: 498 QTc: 410 [place]: P: 44 MA: 136 QRS: 27 T: 22 INTERPRETIVE STATEMENTS: Marked sinus bradycardia Abnormal ECG Compared to ECG 10/12/2018 22:18:02 No significant changes Electronically Signed On 10-14-18 12:33:29 PATTERNMAKER METAL BENCH by yTshawn Melvin
--- NOTE | 2018-10-14 13:26 | PN ---
Ms. Mcknight continues to have dizzy spells. Her blood pressure is good during that. Heart rates are in the 40s and high 30s. She does not have any pauses of 2 seconds or longer. Her pain is complete ly absent now. The Cardiolite stress test and echocardiogram are both normal, and I think we are john ling with something that we do not really have a handle on. I will discuss it with the electrophysio logy proposal consultant as there is no clear indication for a pacemaker use, I think it would be out of the u sual recommendations to have pacemaker, I doubt if that would help anything. We should check thyroid function, see if she is becoming hypothyroid. She is not on any medicine for bradycardia with no AV block, no evidence of any ischemia or myocardial disease, and treating the bradycardia with a pacema ker is not indicated at this time. ANTONIA/GINA Voice ID: [id number] Report ID: [id number]
[2018-10-14] MEDS ORDERED: LORazepam 2 MG/ML VIAL IV ONE (14:49)
--- NOTE | 2018-10-14 17:39 | RAD REPORT ---
EXAM DESCRIPTION: MRI - Brain W/Wo Cont - 10/14/2018 5:11 pm CLINICAL HISTORY: Syncope COMPARISON: October 12, [address] TECHNIQUE: Axial, sagittal, and coronal magnetic images of the brain were obtained. 20 cc MultiHance administered intravenously FINDINGS: No significant abnormal signal within the brain is noted. Hyperostosis frontalis internus seen. The ventricles are normal in caliber. Diffusion-weighted sequences do not demonstrate evidence of an acute infarction. No abnormal enhancement within the brain is seen. An extra-axial fluid collection is not noted. Fluid in the right maxillary sinus may indicate sinusitis IMPRESSION: No acute abnormality displayed
--- NOTE | 2018-10-14 17:49 | RAD REPORT ---
EXAM DESCRIPTION: MRI - C Spine W/Wo Cont - 10/14/2018 5:11 pm CLINICAL HISTORY: Left hand numbness x2 years COMPARISON: None TECHNIQUE: Magnetic resonance imaging of the cervical spine was obtained in axial and sagittal plane s. 20 cc Magnevist administered intravenously FINDINGS: C2-3 unremarkable Small disc bulge C3-4 Small central disc herniation C4-5. Thecal sac 8.5 millimeters . Neural foramina patent Disc bulge C5-6. Thecal sac minimally narrowed. Neural foramina patent Disc bulge C6-7 minimally encroaches upon the thecal sac. Neural foramina patent. C7-T1 are unremarkable The spinal cord is normal caliber and signal. No abnormal signal within the bones is noted. No abnormal enhancement seen IMPRESSION: Small central disc herniation C4-5
[2018-10-14] MEDS: SMZ./TMP. 800/160 MG TABLET PO SCH (21:11)
--- NOTE | 2018-10-14 22:59 | PN ---
Date of Progress Note: 10/14/2018 New finding for the patient has been that she has significant bradycardia, however, not correlated wi th the events. Cardiology was thus consulted once again, and she will be followed on an outpatient b asis with monitoring the issue of a pacemaker what was considered and waiting results of her MRI. Sh e would probably be discharged in a.m. HR/MODL Voice ID: [id number] Report ID: [id number]
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
[2018-10-15 08:39] VITALS: TEMP 98
[2018-10-15] MEDS: HOME MED 1 EA UNK SQ SCH (09:00)
[2018-10-15] MEDS: SMZ./TMP. 800/160 MG TABLET PO SCH (11:00)
[2018-10-15] MEDS: ENOXAPARIN 30 MG/0.3 ML SQ SCH (11:00)
[2018-10-15] MEDS: ASPIRIN EC 81 MG TAB PO SCH (11:01)
[2018-10-15 13:27] VITALS: BP 140/60
[2018-10-15 13:30] VITALS: O2SAT 97
--- NOTE | 2018-10-15 19:51 | PN ---
Date of Progress Note: 10/15/2018 The patient states she had a better night, and in fact, she only had a few episodes of bradycardia, f eels almost back to baseline today. Her arm is much better. MRI did reveal a small cervical disk. Discussion of the options for this was done. She was discharged to follow up with Cardiology for mon itor in a week and then follow up with me once this is done. The options for the cervical spine and her arm pain will also be discussed at this date. HR/MODL Voice ID: [id number] Report ID: [id number]
== END 2018-10-15 15:20 | disposition home or self-care (01) ==
LOC: ER 10:11 → ERHOLD 14:37 → 4TH 16:40
PROVIDERS: ADMIT Family Medicine; ATTEND Family Medicine
DX: R07.9 Chest pain, unspecified (principal); R55 Syncope and collapse; G44.1 Vascular headache, not elsewhere classified; R00.1 Bradycardia, unspecified; M79.2 Neuralgia and neuritis, unspecified
CPT/HCPCS: 93005 ×3; 93017; 93306; 87088; 85025 ×2; 87086; 80048 ×2; 36415 ×2; 85610; 80061; 82962; 85730; 84443; 87077; 87186; 84484 ×3; 84481; 84439; 70450; 71045; 70553; 72156; 97116 ×2; 97163; 97530 ×2; 78452; 99285; A9577; J0360 ×2; J2765; J1650 ×3; J2270; J2785; J2405 ×2; A9500; G0378 ×2; 81003; 81015